=== PATIENT | female | born 1965 | race American Indian/Alaskan Native ===

== ENCOUNTER 2016-07-19 17:31 | Inpatient (IN) | payer OTHER ==
[2016-07-19] MEDS ORDERED: DUONEB 0.5 MG-3 MG/3 ML SOLN IH ONE (18:08)
[2016-07-19] MEDS ORDERED: PEPCID IV ONE (18:08)
[2016-07-19] MEDS ORDERED: ZOFRAN IV ONE (18:13)
[2016-07-19] MEDS ORDERED: SUBLIMAZE IV ONE ×2 (18:13→20:44)
[2016-07-19] MEDS ORDERED: NACL 0.9% 1000 ML 1,000 ML IV ONE ×2 (18:14→19:40)
[2016-07-19 18:51] LABS: Hematocrit 40.3 % (30.3-42.9); Hemoglobin 13.2 gm/dl (10.1-14.3); Mean Corpuscular HGB Conc 33 % (30-34); Mean Corpuscular Hemoglobin 28 pg (28-32); Mean Corpuscular Volume 85 fl (79-97); Platelet Count 333 K/mm3 (140-440); Red Blood Count 4.76 M/mm3 (3.65-5.03); Red Cell Distribution Width 13.8 % (13.2-15.2); White Blood Count 7.6 K/mm3 (4.5-11.0)
[2016-07-19 19:14] LABS: BUN/Creatinine Ratio 17.14; Blood Urea Nitrogen 12 mg/dL (7-17); Calcium 9.2 mg/dL (8.4-10.2); Carbon Dioxide 26 mmol/L (22-30); Glucose 294 mg/dL (65-100); Potassium 3.1 mmol/L (3.6-5.0); Sodium 140 mmol/L (137-145)
[2016-07-19 19:15] LABS: Anion Gap 19 mmol/L
--- NOTE | 2016-07-19 19:40 | Emergency Department Report ---
HPI - General Chief Complaint: Allergic Reaction Time Seen by Provider: 07/19/16 18:08 - HPI HPI: The patient is a 51-year-old female who presents for evaluation of swelling to the lips, tongue, and midface. The patient states that approximate one hour prior to arrival, she developed sudden onset of constant progressive swelling to the lower lip, tongue, and throat. She also has experienced moderate in severity, and tightness in quality, bilateral chest pain, constant since onset. She shares that she consumed provolone cheese and dull in the prior to onset of her symptoms although she has no known history of allergy to either. She does admit to history of angioedema secondary to lisinopril use. She admits to consuming the ARB Benicar this am. The patient denies dyspnea, neck stiffness, dysphagia, stridor, drooling, difficulty tolerating secretions, dysphonia, hoarseness of voice, abdominal pain. ED Past Medical Hx - Past Medical History Hx Hypertension: Yes Hx CVA: Yes (TIA) Hx Diabetes: Yes Hx Seizures: Yes Additional medical history: chronic leg pain diverticulitis uses CPAP at night CAD - Surgical History Additional Surgical History: - Social History Smoking Status: Never Smoker Substance Use Type: None - Medications Home Medications: Home Medications Medication Instructions Recorded Confirmed Last Taken Type oxyCODONE /ACETAMINOPHEN [Percocet 1 tab PO Q6HR PRN #20 tablet 08/19/15 Unknown Rx 5/325] ALPRAZolam [Xanax TAB] 0.25 mg PO TID PRN #30 tab 11/22/15 07/19/16 Unknown Rx Olmesartan/Hydrochlorothiazide 1 tab PO QDAY #30 tablet 11/22/15 07/19/16 Unknown Rx [Benicar HCT 20-12.5 mg] Simvastatin [Zocor TAB] 20 mg PO QHS #30 tablet 11/22/15 07/19/16 Unknown Rx amLODIPine [Norvasc] 10 mg PO DAILY #30 tablet 11/22/15 07/19/16 Unknown Rx Canagliflozin [Invokana] 300 mg PO DAILY 07/19/16 07/19/16 Unknown History Esomeprazole Magnesium [NexIUM] 40 mg PO DAILY 07/19/16 07/19/16 Unknown History Insulin Aspart Prot/Aspart 30 units SQ TID 07/19/16 07/19/16 Unknown History [NovoLOG Mix 70/30 VIAL] valACYclovir [Valtrex] 500 mg PO BID 07/19/16 07/19/16 Unknown History ED Review of Systems ROS: Stated complaint: ALLERGIC REACTION Other details as noted in HPI Physical Exam - Physical Exam Vital Signs: Vital Signs 07/19/16 07/19/16 07/19/16 18:05 19:20 19:36 Temperature 98.4 F Pulse Rate 104 H Respiratory 20 16 18 Rate Blood Pressure 159/101 O2 Sat by Pulse 100 99 Oximetry Physical Exam: General: well-nourished, well-developed, no acute distress Head: Normocephalic, Eyes: normal sclera ENT: Mucous membranes are pink and moist bilateral lower lip swelling present, mild swelling of the distal tongue present, no uvula, soft palate, or oropharyngeal swelling, no pooling of secretions in the posterior pharynx, no stridor or dysphonia Neck: trachea midline, neck supple, No neck stiffness, no cervical adenopathy Respiratory: mildly diminished breath sounds and wheezing present to bilateral lung pérez Cardio: S1 and S2 present, no murmurs, rubs, gallops, capillary refill is brisk Abdomen: Normoactive bowel sounds, soft abdomen, no rigidity, no guarding or rebound tenderness Musc: No pitting edema Skin: No rash Neuro: no facial drooping, normal speech Psych: Normal affect ED Course Vital Signs 07/19/16 07/19/16 07/19/16 18:05 19:20 19:36 Temperature 98.4 F Pulse Rate 104 H Respiratory 20 16 18 Rate Blood Pressure 159/101 O2 Sat by Pulse 100 99 Oximetry ED Medical Decision Making - Lab Data Result diagrams: 07/19/16 18:37 07/19/16 18:37 - Medical Decision Making The patient was seen and examined by myself. The patient received IV Solu- Medrol, IM epinephrine, an IV Benadryl via EMS, prior to arrival. The patient is placed on a revenue integrity analyst and continuous pulse ox. On initial evaluation, the patient was found to be in no distress. Evaluation orders were placed. The patient is given a DuoNeb breathing treatment, IV Pepcid, and IV fentanyl for her chest pain. Lab results revealed hyperglycemia of 290, and otherwise labs are grossly unremarkable. X-ray of the chest is grossly unremarkable. Critical care attestation.: If time is entered above; I have spent that time in minutes in the direct care of this critically ill patient, excluding procedure time. ED Disposition Clinical Impression: Acute chest pain Angioedema Qualifiers: Encounter type: initial encounter Qualified Code(s): T78.3XXA - Angioneurotic edema, initial encounter Anaphylaxis Qualifiers: Encounter type: initial encounter Qualified Code(s): T78.2XXA - Anaphylactic shock, unspecified, initial encounter Disposition: OP ADMITTED IP TO THIS HOSP Is pt being admited?: Yes Does the pt Need Aspirin: Yes Condition: Stable Instructions: Chest Pain (ED) Referrals: PRIMARY CARE, [Primary Care Provider] - 3-5 Days Time of Disposition: 19:04
[2016-07-19] MEDS ORDERED: SUBLIMAZE ONE (22:03)
--- NOTE | 2016-07-19 22:17 | Event Note ---
Date: 07/19/16 See H/p in reports Angioedema sec to ARB-Benicar. HTN T2DM Sleep Apnea Hypokalemia
[2016-07-19] MEDS ORDERED: D50W (25GM) IV PRN (22:22)
[2016-07-19] MEDS ORDERED: TYLENOL PO PRN (22:22)
[2016-07-19] MEDS ORDERED: DULCOLAX PR PRN (22:22)
[2016-07-19] MEDS ORDERED: MILK OF MAGNESIA PO PRN (22:22)
[2016-07-19] MEDS ORDERED: ZOFRAN IV PRN (22:22)
[2016-07-19] MEDS ORDERED: NON-FORMULARY (Insulin Aspart Prot/Aspart 30 UNITS) SQ SCH (22:30)
[2016-07-19] MEDS ORDERED: NACL 0.9% 1000 ML 1,000 ML IV SCH (23:00)
[2016-07-19] MEDS ORDERED: K-DUR PO ONE (23:00)
[2016-07-19] MEDS ORDERED: SODIUM CHLORIDE FLUSH SYRINGE 10 ML IV PRN (23:28)
[2016-07-20 00:19] LABS: Creatine Kinase MB 1.9 ng/mL (0.0-4.0)
[2016-07-20 00:20] LABS: Creatine Kinase 224 units/L (30-135)
--- NOTE | 2016-07-20 00:20 | History and Physical Report ---
CHIEF COMPLAINT: Swelling of the lips and the tongue. HISTORY OF PRESENT ILLNESS: A 51-year-old -[place] female comes in for swelling of the lips, tongue, and face. It started approximately 1 hour prior to arrival. Constant progressive swelling to the lower lip, tongue and throat. The patient also has experienced moderate severity and tightness in quality, bilateral chest pain. Constant since the onset. The patient had a similar reaction to lisinopril and was changed to Benicar recently and also she attributes to Benicar or Joon cheese. She was in the hospital for 7 days secondary to angioedema due to lisinopril use in the past. Denies any neck stiffness, dysphagia, stridor, drooling, difficulty tolerating secretions, dysphonia, hoarseness or voice, abdominal pain, etc. PAST MEDICAL HISTORY: Significant for hypertension, CVA, diabetes, seizures, chronic leg pain, diverticulitis, uses CPAP at nighttime. PAST SURGICAL HISTORY: . SOCIAL HISTORY: Does not smoke. No alcohol, no recreational drugs. CURRENT MEDICATIONS: Percocet 5/325 mg q.6.h. p.r.n., Xanax 0.25 mg t.i.d., olmesartan to 20/12.5 mg daily, simvastatin 20 mg p.o. daily, amlodipine 10 mg p.o. daily, Invokana 300 mg p.o. daily, Nexium 40 mg p.o. daily, insulin 70/30 30 units t.i.d., and valacyclovir 500 mg twice a day. FAMILY HISTORY: Significant for hypertension. REVIEW OF SYSTEMS: CONSTITUTIONAL: No fever, no chills. No weight loss. HEENT: Swelling of the lips and the tongue present. No airway compromise. The patient able breath easily. Able to swallow easily. Pupils are equal and reactive. NECK: No neck stiffness. No neck pain. RESPIRATORY: No shortness of breath, nausea, no cough productive of yellow sputum. CVS: Chest pain present bilaterally, moreso on the left side. GASTROINTESTINAL: No nausea, no vomiting, no diarrhea. GENITOURINARY: No dysuria, no flank pain. MUSCULOSKELETAL: No joint pains. CENTRAL NERVOUS SYSTEM: No syncope, no seizures. SKIN: No rashes. ENDOCRINE: No polyuria, polydipsia or polyphagia. No heat or cold intolerance. SKIN: No rashes. Swelling of the tongue and lips present. HEMATOLOGIC AND LYMPHATIC: No easy bruising, no lymphadenopathy. PSYCHIATRIC: No depression, no suicidal or homicidal tendencies. A 14-point review of systems is done, essentially negative. PHYSICAL EXAMINATION: GENERAL: Middle-aged female, cooperative during examination. VITAL SIGNS: Blood pressure 159/101, temperature 98.4, pulse is 104, respiratory rate is 20, sats are 100%. HEENT: Tongue and lips are swollen. Good air entry present. Tongue is swollen. Lips are swollen. No airway compromise. NECK: No neck stiffness. No lymphadenopathy, no thyromegaly. CHEST AND LUNGS: Clear to auscultation and percussion. Good air entry. CVS: S1, S2 heard. No gallop, no murmur, no rub. Apical impulse in left fifth intercostal space and midclavicular line. ABDOMEN: Soft and benign. No hepatosplenomegaly. No guarding, no rigidity. Hernial orifices are normal. EXTREMITIES: Good pedal pulses. No pedal edema. CENTRAL NERVOUS SYSTEM: Alert and oriented x 4, nonfocal exam. SKIN: Normal. LABORATORY DATA: White count is 7600, H and H is 13.2 and 40.3, platelet count is 333,000. EMERGENCY ROOM COURSE: The patient was given IV Solu-Medrol, epinephrine, IV Benadryl and was placed on continuous pulse ox. The patient improved to some extent but the patient needed further care because of persistent angioedema and tongue swelling. We did not want her to relapse and going to airway obstruction. Being admitted for 24-48 hours. ASSESSMENT AND PLAN: 1. Acute angioedema. The patient to be on IV Solu-Medrol and IV Pepcid and Benadryl q.6h. 2. Chest pain, rule out myocardial infarction, chest pain protocol. Lexiscan in the morning. 3. Hypertension. We will stop the Benicar. No more KIMBERLEY inhibitors and ARBs in the future. We will switch the patient on amlodipine. We will add Coreg 12.5 mg q.12h. If necessary add hydralazine 50 mg or 25 mg q.8h. 4. The patient not to continue any ARBs or KIMBERLEY inhibitors in the future. 5. Diabetes type 2. Continue with coverage. Also, the patient on insulin 70/30 three times a day and switch it to twice a day. 6. Chronic pain. The patient on oxycodone and Percocet 5/325 mg p.o. hours p.r.n. 7. Gastroesophageal reflux disease. Continue Nexium 40 mg p.o. daily. 8. Generalized anxiety disorder. Continue Xanax 0.25 mg t.i.d. 9. Sleep apnea. CPAP as necessary. 10. Hyperlipidemia. Continue simvastatin 20 mg p.o. at bedtime. 11. Deep venous thrombosis prophylaxis. Lovenox 40 mg subcutaneous daily. JOB# [id number] JU[facility]/NTS
[2016-07-20] MEDS: PERCOCET 5/325 PO PRN ×3 (00:26→18:00)
[2016-07-20] MEDS: VALTREX PO SCH ×3 (00:26→23:31)
[2016-07-20] MEDS: AMBIEN PO PRN ×2 (00:26→23:32)
[2016-07-20] MEDS: COREG PO SCH ×2 (00:27→09:15)
[2016-07-20] MEDS: PEPCID IV SCH ×3 (00:29→10:53)
[2016-07-20] MEDS: NOVOLOG SUB-Q SCH ×4 (06:44→23:34)
[2016-07-20 07:57] LABS: Basophils % (Auto) 0.4 % (0.0-1.8); Hematocrit 38.4 % (30.3-42.9); Hemoglobin 12.4 gm/dl (10.1-14.3); Mean Corpuscular HGB Conc 32 % (30-34); Mean Corpuscular Hemoglobin 27 pg (28-32); Mean Corpuscular Volume 83 fl (79-97); Platelet Count 305 K/mm3 (140-440); Red Blood Count 4.62 M/mm3 (3.65-5.03); Red Cell Distribution Width 14.2 % (13.2-15.2); White Blood Count 8.1 K/mm3 (4.5-11.0)
--- NOTE | 2016-07-20 08:12 | XRay Report ---
AP CHEST : 07/19/16 17:31:00 CLINICAL: Chest pain. COMPARISON:None FINDINGS: Normal heart and pulmonary vessels. The lungs are normally expanded and clear. The bones and soft tissues are normal. IMPRESSION: Normal chest.
[2016-07-20 08:17] LABS: Creatine Kinase MB 1.6 ng/mL (0.0-4.0)
[2016-07-20 08:18] LABS: Alanine Aminotransferase 15 units/L (7-56); Albumin 3.7 g/dL (3.9-5); Alkaline Phosphatase 90 units/L (35-129); Anion Gap 19 mmol/L; BUN/Creatinine Ratio 18.57; Bilirubin,Total 0.2 mg/dL (0.1-1.2); Blood Urea Nitrogen 13 mg/dL (7-17); Carbon Dioxide 21 mmol/L (22-30); Chloride 99.8 mmol/L (98-107); Glucose 271 mg/dL (65-100); Potassium 4.3 mmol/L (3.6-5.0); Sodium 135 mmol/L (137-145); Total Protein 7.5 g/dL (6.3-8.2)
[2016-07-20 08:19] LABS: Creatine Kinase 158 units/L (30-135)
--- NOTE | 2016-07-20 08:36 | Admit Criteria Form ---
Admission Criteria Documentation: CHEST PAIN Clinical Indications for Admission to Inpatient Care (Place 'X' for any and all applicable criteria): Admission is indicated for chest pain and ANY ONE of the following(1)(2)(3)(4)(5 ): [ ]I. Angina with acute coronary syndrome (Also use Myocardial Infarction or Angina guideline) [ ]II. Hemodynamic instability [ X]III. Angina needing acute intervention as indicated by ALL of the following (11)(12): [X ]a) Unstable angina is present as indicated by angina that is ANY ONE of the following: [X ]i) New onset [ ]ii) Nocturnal [ ]iii) Prolonged at rest [ ]iv) Progressive [ X]b) Angina warrants acute intervention as indicated by ANY ONE of the following: [ ]i) Recurrent angina (e.g, not responding as previously to treatment) [ ]ii) Angina at rest or with low-level activities despite initial medical therapy [ ]iii) New or presumably new ST-segment depression on ECG [ ]iv) Signs or symptoms of heart failure (eg, dyspnea, pulmonary edema) [ ]v) New or worsening mitral regurgitation [ ]vi) Hemodynamic instability [ ]vii) Dangerous arrhythmia (eg, sustained ventricular tachycardia) [ ]viii) History of percutaneous coronary intervention within 6 months [ ]ix) History of coronary artery bypass graft surgery [ ]x) JARAD risk score of 2 or greater[A] [X ]xi) History of Diabetes(14) [ ]xii) High-risk cardiac ischemia findings on noninvasive testing (e.g, echocardiogram, treadmill testing, nuclear scan) [ ]xiii) Chronic renal insufficiency (ie, estimated GFR less than 60 mL/min/1.732m) [ ]xiv) Left ventricular ejection fraction less than 40% [ ]IV. Evidence of AL (eg, cardiac biomarkers positive, ST-segment elevation on ECG) also use Myocardial Infarction Criteria Form. [ ]V. Pulmonary edema [ ]. Respiratory distress [ ]VII. Chest pain indicative of serious diagnosis other than coronary artery disease (eg, aortic dissection) [ ]VIII. Contraindications and/or Inappropriate clinical situations for Observational Care in patients with Chest Pain, when ANY ONE of the following is required: [ ]a) Patient with risk factor for pulmonary embolism, acute coronary syndrome and myocardial infarction (18) [ ]b) Patient with Pulmonary embolism require an average LOS of 4.3 days, therefore emergency department observation management is inappropriate 18,23 [ ]c) Painful condition/s in the elderly, have the highest rate of recidivism after emergency department observation management (10.8%) 20,21,22 [ ]d) Elevated cardiac biomarker requires intensive and exhaustive care (19) [ ]IX. General contraindications and/or Inappropriate clinical situations for Observational Care in patients with Chest Pain, when ANY ONE of the following is required: [ ]a) Prediction of prolongation of LOS based on ANY ONE of the following may be considered as a contraindication for observational care 2, 3, 4, 5, 6, 7, 8, 9, 10, 11 [ ]i) Age > 65 yrs. [ ]ii) Patient arriving by ambulance [ ]iii) Patient with high acuity [ ]iv) Patient requiring vital sign monitoring [ ]v) Patient on IV medication [ ]b) Systolic blood pressures 180mmHg 3,12 [ ]c) Patient with altered mental status including delirium and other alteration of consciousness, (3) [ ]d) Patient whose discharge disposition will be to a nursing home home or rehabilitation home should not be managed in Emergency Department Observation Unit. CMS rule requires 3 days hospital stay before such placement. 3,13 [ ]e) Patient with failure to thrive due to broad array of etiologies 3,16,17 [ ]f) Inability to ambulate 3,14 Extended stay beyond goal length of stay may be needed for (1)(28): [ ]a) Specific condition diagnosed after evaluation (eg, pulmonary embolism, aortic dissection) [ ]b) Unstable angina [ ]c) Continued suspicion of acute coronary syndrome with inability to complete needed cardiac evaluation (eg, patient clinically unable to undergo stress testing) [ ]d) Myocardial infarction (Contents from ANGINA and CHEST PAIN clinical indications for admission to inpatient care have been integrated in this form) The original [employer] content created by [employer] has been revised. The portions of the content which have been revised are identified through the use of italic text or in bold, and [facility] has neither reviewed nor approved the modified material. All other unmodified content is copyright [employer]. Please see references footnoted in the original [email or web address] edition 2016 Admission Criteria Met: Yes
[2016-07-20] MEDS: NORVASC PO SCH (09:14)
[2016-07-20] MEDS ORDERED: NON-FORMULARY (Canagliflozin [Invokana] 300 MG) PO SCH (10:00)
[2016-07-20] MEDS ORDERED: PROTONIX PO SCH (10:00)
--- NOTE | 2016-07-20 19:09 | Progress Note ---
History Interval history: lip, tongue swelling significantly reduced; complaining of left leg pain Hospitalist Physical - Constitutional Vitals: Temp Pulse Resp BP Pulse Ox 98.5 F 72 18 146/72 97 07/20/16 16:27 07/20/16 16:27 07/20/16 16:27 07/20/16 16:27 07/20/16 16:27 Results - Labs CBC & Chem 7: 07/20/16 07:44 07/20/16 07:44 Labs: Laboratory Last Values WBC 8.1 K/mm3 (4.5-11.0) 07/20/16 07:44 RBC 4.62 M/mm3 (3.65-5.03) 07/20/16 07:44 Hgb 12.4 gm/dl (10.1-14.3) 07/20/16 07:44 Hct 38.4 % (30.3-42.9) 07/20/16 07:44 MCV 83 fl (79-97) 07/20/16 07:44 MCH 27 pg (28-32) L 07/20/16 07:44 MCHC 32 % (30-34) 07/20/16 07:44 RDW 14.2 % (13.2-15.2) 07/20/16 07:44 Plt Count 305 K/mm3 (140-440) 07/20/16 07:44 Lymph % (Auto) 9.8 % (13.4-35.0) L 07/20/16 07:44 [place] % (Auto) 2.5 % (0.0-7.3) 07/20/16 07:44 Eos % (Auto) 0.0 % (0.0-4.3) 07/20/16 07:44 Baso % (Auto) 0.4 % (0.0-1.8) 07/20/16 07:44 Lymph # 0.8 K/mm3 (1.2-5.4) L 07/20/16 07:44 [place] # 0.2 K/mm3 (0.0-0.8) 07/20/16 07:44 Eos # 0.0 K/mm3 (0.0-0.4) 07/20/16 07:44 Baso # 0.0 K/mm3 (0.0-0.1) 07/20/16 07:44 Seg Neutrophils % 87.3 % (40.0-70.0) H 07/20/16 07:44 Seg Neutrophils # 7.1 K/mm3 (1.8-7.7) 07/20/16 07:44 Sodium 135 mmol/L (137-145) L 07/20/16 07:44 Potassium 4.3 mmol/L (3.6-5.0) D 07/20/16 07:44 Chloride 99.8 mmol/L (98-107) 07/20/16 07:44 Carbon Dioxide 21 mmol/L (22-30) L 07/20/16 07:44 Anion Gap 19 mmol/L 07/20/16 07:44 BUN 13 mg/dL (7-17) 07/20/16 07:44 Creatinine 0.7 mg/dL (0.7-1.2) 07/20/16 07:44 Estimated GFR > 60 ml/min 07/20/16 07:44 BUN/Creatinine Ratio 18.57 % 07/20/16 07:44 Glucose 271 mg/dL (65-100) H 07/20/16 07:44 POC Glucose 302 (70-105) H 07/20/16 16:39 Hemoglobin A1c 10.2 % (4-6) H 07/19/16 18:37 Calcium 9.0 mg/dL (8.4-10.2) 07/20/16 07:44 Total Bilirubin 0.2 mg/dL (0.1-1.2) 07/20/16 07:44 AST 15 units/L (5-40) 07/20/16 07:44 ALT 15 units/L (7-56) 07/20/16 07:44 Alkaline Phosphatase 90 units/L (35-129) 07/20/16 07:44 Total Creatine Kinase 158 units/L (30-135) H 07/20/16 07:44 CK-MB (CK-2) 1.6 ng/mL (0.0-4.0) 07/20/16 07:44 CK-MB (CK-2) Rel Index 1.0 (0-4) 07/20/16 07:44 Troponin T < 0.010 ng/mL (0.00-0.029) 07/20/16 07:44 NT-Pro-B Natriuret Pep 96.40 pg/mL (0-900) 07/19/16 18:37 Total Protein 7.5 g/dL (6.3-8.2) 07/20/16 07:44 Albumin 3.7 g/dL (3.9-5) L 07/20/16 07:44 Albumin/Globulin Ratio 1.0 % 07/20/16 07:44
[2016-07-20] MEDS ORDERED: DILAUDID IV ONE (21:57)
[2016-07-20] MEDS ORDERED: ZOCOR PO SCH (22:00)
[2016-07-20] MEDS: XANAX PO PRN (23:32)
[2016-07-21] MEDS: COREG PO SCH ×2 (00:19→12:46)
[2016-07-21] MEDS: PEPCID IV SCH (00:19)
[2016-07-21] MEDS: PERCOCET 5/325 PO PRN ×2 (01:20→14:57)
[2016-07-21] MEDS: NOVOLOG SUB-Q SCH ×2 (07:30→13:08)
[2016-07-21] MEDS ORDERED: LEXISCAN IV ONE (09:04)
[2016-07-21] MEDS ORDERED: PEPCID PO SCH (12:00)
[2016-07-21] MEDS: NORVASC PO SCH (12:44)
[2016-07-21] MEDS: VALTREX PO SCH (12:45)
[2016-07-21] MEDS: XANAX PO PRN (14:57)
[2016-07-21] MEDS ORDERED: DILAUDID IV ONE (16:02)
--- NOTE | 2016-07-21 16:08 | Discharge Summary ---
Providers - Providers Date of Admission: 07/20/16 17:40 Date of discharge: 07/21/16 Attending physician: HECTOR ATWOOD Primary care physician: STRATIGRAPHY TEACHER Hospitalization Condition: Stable Disposition: DISCHARGED TO HOME OR SELFCARE Time spent for discharge: 35 min Exam - Constitutional Vitals: Temp Pulse Resp BP Pulse Ox 98 F 76 16 132/88 98 07/21/16 07:15 07/21/16 12:46 07/21/16 07:15 07/21/16 09:42 07/21/16 07:15 Plan Activity: advance as tolerated Diet: low cholesterol, low salt Follow up with: PRIMARY CARE, [Primary Care Provider] - 3-5 Days Prescriptions: Simvastatin [Zocor TAB] 20 mg PO QHS #30 tablet Carvedilol [Coreg] 12.5 mg PO BID #60 tablet amLODIPine [Norvasc] 10 mg PO DAILY #30 tablet Insulin NPH/Regular [NovoLIN 70/30] 30 unit SUB-Q BIDDIAB #1 units oxyCODONE /ACETAMINOPHEN [Percocet 5/325 mg] 1 tab PO Q6H PRN #20 tablet PRN Reason: Pain
[2016-07-21 16:28] VITALS: BP 132/72
--- NOTE | 2016-07-22 01:25 | Treadmill Report ---
PROCEDURE: Single-isotope dual study myocardial perfusion scan. REFERRING PHYSICIAN: Nga Woodard MD DESCRIPTION OF PROCEDURE: The patient received 10 mCi of technetium 99m Myoview intravenously under resting condition. Resting myocardial perfusion scan was done. Subsequently, the patient underwent Lexiscan stress test as per the protocol. During Lexiscan stress, the patient received 28 mCi of technetium 99m Myoview intravenously. After 30-60 minutes, post stress images were done. Computerized reconstruction images were performed. The post-stress images revealed uniform distribution of the radiopharmaceutical in the left ventricular myocardium. Cinematic display of the gated study did not reveal any wall motion abnormality. The left ventricular ejection fraction was normal and was calculated to be 75%. The resting images were also normal. CONCLUSION: 1. No perfusion abnormality of the left ventricular myocardium was demonstrated in the resting as well as stress images obtained after the patient underwent Lexiscan stress test. 2. No wall motion abnormality. 3. Normal left ventricular systolic function with LVEF around 75%. JOB# [id number] [facility]
== END 2016-07-21 19:03 | disposition home or self-care (01) | DRG 916 ==
LOC: ED 17:31 → 3A 20:55 → OBSVTOIN 07-20 17:40
PROVIDERS: ADMIT Hospitalist; ATTEND Internal Medicine
PROC: 4A02XM4 Measurement of Cardiac Total Activity, External Approach (ICD-10-PCS; principal; 2016-07-19)
DX: T78.3XXA Angioneurotic edema, initial encounter (principal); I10 Essential (primary) hypertension; E11.9 Type 2 diabetes mellitus without complications; G89.29 Other chronic pain; R07.9 Chest pain, unspecified; K21.9 Gastro-esophageal reflux disease without esophagitis; F41.1 Generalized anxiety disorder; G47.30 Sleep apnea, unspecified; E78.5 Hyperlipidemia, unspecified; Z86.73 Personal history of transient ischemic attack (TIA), and cerebral infarction without residual deficits; Z88.6 Allergy status to analgesic agent; Z88.8 Allergy status to other drugs, medicaments and biological substances; Z82.49 Family history of ischemic heart disease and other diseases of the circulatory system
CPT/HCPCS: 36415; 71010; 78452; 80048; 80053; 82550; 82553; 82962; 83036; 83880; 84484; 85025; 85027; 93005; 93010; 93017; 94640; 96374; 96375; 96376; A9502; G0378; J1170; J1815; J2405; J2785; J2930; J3010; J7030

== ENCOUNTER 2017-05-13 12:15 | Emergency (ER) | payer MEDICAID ==
[2017-05-13 12:43] LABS: Basophils % (Auto) 0.6 % (0.0-1.8); Eosinophils % (Auto) 2.2 % (0.0-4.3); Hematocrit 40.6 % (30.3-42.9); Hemoglobin 13.3 gm/dl (10.1-14.3); Mean Corpuscular HGB Conc 33 % (30-34); Mean Corpuscular Hemoglobin 29 pg (28-32); Mean Corpuscular Volume 88 fl (79-97); Platelet Count 277 K/mm3 (140-440); Red Cell Distribution Width 13.7 % (13.2-15.2)
[2017-05-13 13:18] LABS: Anion Gap 18 mmol/L; BUN/Creatinine Ratio 15; Blood Urea Nitrogen 12 mg/dL (7-17); Calcium 9.3 mg/dL (8.4-10.2); Carbon Dioxide 24 mmol/L (22-30); Chloride 104.7 mmol/L (98-107); Glucose 295 mg/dL (65-100); Potassium 3.6 mmol/L (3.6-5.0); Sodium 143 mmol/L (137-145)
--- NOTE | 2017-05-13 13:31 | XRay Report ---
CHEST TWO VIEWS: 05/13/17 12:15:00 CLINICAL: Chest pain. COMPARISON: 07/19/16 FINDINGS: Normal heart and pulmonary vasculature.Aortic tortuosity. The lungs are normally expanded and clear.The bones and soft tissues are unremarkable. IMPRESSION: No acute cardiopulmonary process.
[2017-05-13] MEDS ORDERED: DUONEB *Not for PRN Use IH ONE (14:24)
--- NOTE | 2017-05-13 14:26 | Emergency Department Report ---
Chief Complaint: Allergic Reaction Stated Complaint: POSSIBLE ALLERGIC REACTION, ITCHING ALL OVER - HPI History of Present Illness: 51-year-old female past medical history hypertension, diabetes, history of angioedema/allergic reactions presents with complaint of 2 hours of shortness of breath facial swelling and chest pain. Patient is awake and alert but appears distressed and emotionally labile. States that she feels that she is having a hard time breathing. As per her this episode started approximately 2 hours ago. Patient is awake alert and oriented. - ROS Review of Systems: History of - Exam Vital Signs: Vital Signs 05/13/17 12:18 Temperature 99.8 F H Pulse Rate 98 H Respiratory 20 Rate Blood Pressure 152/108 O2 Sat by Pulse 100 Oximetry Physical Exam: Heart S1-S2, lungs clear. Patient awake alert and oriented 3. No visible tongue and/or lip swelling, oropharynx patent on inspection MSE screening note: Focused history and physical exam performed. Due to findings the following was ordered: Screening Assessment/Plan/Differential Dx: Shortness of breath, possible allergic reaction 1- This initial assessment/diagnostic orders/clinical plan/ treatment(s) is/are subject to change based on pt's health status, clinical progression and re- assessment by fellow clinical providers in the ED. Further treatment and workup at subsequent clinical provers discretion. Patient/guardians urged not to elope from ED as their condition may be serious if not clinically assessed and managed. 2-loader demolder Lisa informed of scenario 3-duoneb tx 4-repeat ekg, trop beg x1, cxr WNL 5- VS stable at bedside as of 2:25PM, BP 153/109, o2sat on RA 100%, HR 90, RR20 ED Medical Decision Making - Lab Data Result diagrams: 05/13/17 12:28 05/13/17 12:28 ED Disposition for MSE Condition: Stable Referrals: PRIMARY CARE, [Primary Care Provider] - 3-5 Days
[2017-05-13] MEDS ORDERED: BENADRYL IV ONE ×2 (14:31→17:05)
[2017-05-13] MEDS ORDERED: PEPCID IV ONE (14:31)
--- NOTE | 2017-05-13 17:11 | Emergency Department Report ---
HPI - General Chief Complaint: Allergic Reaction Time Seen by Provider: 05/13/17 16:54 - HPI HPI: This is a 51-year-old -[place] female presents to the emergency department from home with a possible allergic reaction. She says that after eating something this morning she had some swelling of the face and neck and also had a burning sensation in the chest. She did not take anything for her symptoms prior presentation but received some Benadryl, Pepcid, steroids and a breathing treatment through triage and now says that she is feeling much improved. She says that she does have a history of allergic reactions to multiple medications as well as to random foods. However she is unsure what food as she says that sometimes she will not have a reaction to something and then the next time she consumes it she will have a reaction. She has seen an punch press feeder in the past who was unable to narrow down her allergies. She denies any drooling or trismus, fever, nausea, vomiting or fever. ED Past Medical Hx - Past Medical History Hx Hypertension: Yes Hx CVA: Yes (TIA) Hx Congestive Heart Failure: No Hx Diabetes: Yes Hx Sickle Cell Disease: No Hx Seizures: Yes Hx Asthma: No Hx COPD: No Hx HIV: No Additional medical history: chronic leg pain diverticulitis uses CPAP at night CAD - Surgical History Additional Surgical History: - Social History Smoking Status: Never Smoker Substance Use Type: None - Medications Home Medications: Home Medications Medication Instructions Recorded Confirmed Last Taken Type ALPRAZolam [Xanax TAB] 0.25 mg PO TID PRN #30 tab 11/22/15 05/13/17 Unknown Rx Insulin Aspart Prot/Aspart(Nf) 30 units SQ TID 07/19/16 05/13/17 05/13/17 History [NovoLOG Mix 70/30 VIAL] Insulin NPH/Regular [NovoLIN 70/30] 30 unit SUB-Q BIDDIAB #1 units 07/21/1605/1905/13/17 Rx amLODIPine [Norvasc] 10 mg PO DAILY #30 tablet 07/21/16 05/13/17 05/13/17 Rx oxyCODONE /ACETAMINOPHEN [Percocet 1 tab PO Q6H PRN #20 tablet 07/21/1605/13/17 Rx 5/325 mg] Clopidogrel Bisulfate [Plavix] 75 mg PO DAILY 05/13/17 05/13/17 05/13/17 History Famotidine [Pepcid] 20 mg PO BID #10 tablet 05/13/17 Unknown Rx ED Review of Systems ROS: Stated complaint: POSSIBLE ALLERGIC REACTION, ITCHING ALL OVER Other details as noted in HPI Comment: All other systems reviewed and negative Constitutional: denies: chills, fever Eyes: denies: eye pain, eye discharge, vision change ENT: denies: ear pain, throat pain Respiratory: denies: cough, wheezing Cardiovascular: chest pain. denies: palpitations Gastrointestinal: denies: abdominal pain, nausea, diarrhea Genitourinary: denies: urgency, dysuria, discharge Musculoskeletal: denies: back pain, joint swelling, arthralgia Skin: denies: lesions, change in color Neurological: denies: headache, weakness Physical Exam - Physical Exam Vital Signs: Vital Signs 05/13/17 05/13/17 05/13/17 12:18 14:29 14:35 Temperature 99.8 F H Pulse Rate 98 H Pulse Rate [ 90 94 H Bilateral Upper Lobe] Respiratory 20 Rate Respiratory 18 18 Rate [Bilateral Upper Lobe] Blood Pressure 152/108 Blood Pressure [Left] O2 Sat by Pulse 100 Oximetry 05/13/17 17:05 Temperature 98.4 F Pulse Rate 87 Pulse Rate [ Bilateral Upper Lobe] Respiratory 18 Rate Respiratory Rate [Bilateral Upper Lobe] Blood Pressure Blood Pressure 146/100 [Left] O2 Sat by Pulse 98 Oximetry Physical Exam: GENERAL: The patient is well-developed well-nourished. HENT: Normocephalic. Atraumatic. Patient has moist mucous membranes. Oropharynx is clear. Malampati of 3. No drooling or trismus. EYES: Extraocular motions are intact. Pupils equal reactive to light bilaterally. NECK: Supple. Trachea is midline. There is some nonpitting swelling to the base of the anterior and bilateral neck and towards the shoulders. CHEST/LUNGS: Clear to auscultation. There is no respiratory distress noted. HEART/CARDIOVASCULAR: Regular. There is no tachycardia. There is no gallop rub or murmur. ABDOMEN: Abdomen is soft, nontender. Patient has normal bowel sounds. There is no abdominal distention. SKIN: Skin is warm and dry. NEURO: The patient is awake, alert, and oriented. The patient is cooperative. The patient has no focal neurologic deficits. The patient has normal speech. MUSCULOSKELETAL: There is no tenderness or deformity. There is no limitation range of motion. There is no evidence of acute injury. ED Course Vital Signs 05/13/17 05/13/17 05/13/17 12:18 14:29 14:35 Temperature 99.8 F H Pulse Rate 98 H Pulse Rate [ 90 94 H Bilateral Upper Lobe] Respiratory 20 Rate Respiratory 18 18 Rate [Bilateral Upper Lobe] Blood Pressure 152/108 Blood Pressure [Left] O2 Sat by Pulse 100 Oximetry 05/13/17 17:05 Temperature 98.4 F Pulse Rate 87 Pulse Rate [ Bilateral Upper Lobe] Respiratory 18 Rate Respiratory Rate [Bilateral Upper Lobe] Blood Pressure Blood Pressure 146/100 [Left] O2 Sat by Pulse 98 Oximetry ED Medical Decision Making - Lab Data Result diagrams: 05/13/17 12:28 05/13/17 12:28 - EKG Data -: EKG Interpreted by Me EKG shows normal: sinus rhythm, axis, intervals, QRS complexes, ST-T waves Rate: normal - EKG Data When compared to previous EKG there are: previous EKG unavailable Interpretation: normal EKG - Radiology Data Radiology results: image reviewed interpreted by me: Chest x-ray does not show any acute process. There are no pleural effusions, obvious pneumonia and there is no pneumothorax. - Medical Decision Making 51-year-old female presents after what appears to be an allergic reaction that included some chest burning. Because of the chest burning, the patient had a chest pain workup through the emergency department. Labs of an unremarkable including negative troponins 2. EKG does not show any signs of ST elevation [place] , ischemia or dysrhythmia. Chest x-ray does not show any acute process. The patient also had some swelling of the face and neck that she says was much worse prior to presentation and improved after getting some medication to triage. Vital signs stable throughout her ED course. She was reevaluated multiple times for multiple hours and says she is feeling much better. There is almost no appreciable swelling and she has no chest burning sensation. Despite the negative workup, the patient has a low heart score and a low JARAD score. She appears safe for discharge home at this time. She has Benadryl at home to use. She is diabetic and therefore I'll avoid any courses of steroids. She will get some Pepcid. She has been encouraged to follow up with her PCP and punch press feeder and return to the emergency Department with any worsening of her symptoms or any acute distress. Discharge instructions given in the emergency department and all questions have been answered. - Differential Diagnosis allergic reaction, angioedema, GERD, [place] Critical Care Time: No Critical care attestation.: If time is entered above; I have spent that time in minutes in the direct care of this critically ill patient, excluding procedure time. ED Disposition Clinical Impression: Burning chest pain, Facial swelling Allergic reaction Qualifiers: Encounter type: initial encounter Qualified Code(s): T78.40XA - Allergy, unspecified, initial encounter Disposition: TO HOME OR SELFCARE Is pt being admited?: No Condition: Stable Instructions: Chest Pain (ED), Angioedema (ED) Additional Instructions: Please follow-up with your primary care physician and punch press feeder. Return to the emergency Department with any worsening of her symptoms, involvement of the tongue or throat, inability to swallow, respiratory distress, or any acute distress. I have prescribed you a few days of Pepcid to help with your allergic reaction. You can also use Benadryl as needed. Prescriptions: Famotidine [Pepcid] 20 mg PO BID #10 tablet Referrals: PRIMARY CARE, [Primary Care Provider] - 3-5 Days Time of Disposition: 18:52
[2017-05-13 19:07] VITALS: BP 140/95
== END 2017-05-13 19:15 | disposition home or self-care (01) ==
LOC: ED 12:15
DX: R07.9 Chest pain, unspecified (principal); T78.40XA Allergy, unspecified, initial encounter; Z86.73 Personal history of transient ischemic attack (TIA), and cerebral infarction without residual deficits; I10 Essential (primary) hypertension; E11.9 Type 2 diabetes mellitus without complications; Z79.4 Long term (current) use of insulin; Z88.8 Allergy status to other drugs, medicaments and biological substances
CPT/HCPCS: 36415; 71020; 80048; 84484; 85025; 93005; 93010; 94640; 96372; 96374; 96375; 96376; 99284; J1200; J2930

== ENCOUNTER 2017-09-18 07:00 | Inpatient (IN) | payer MEDICAID ==
[2017-09-18 07:30] LABS: Basophils % (Auto) 0.8 % (0.0-1.8); Eosinophils # (Auto) 0.2 K/mm3 (0.0-0.4); Eosinophils % (Auto) 3.6 % (0.0-4.3); Hematocrit 41.7 % (30.3-42.9); Hemoglobin 13.5 gm/dl (10.1-14.3); Lymphocytes # (Auto) 1.9 K/mm3 (1.2-5.4); Lymphocytes % (Auto) 31.5 % (13.4-35.0); Mean Corpuscular HGB Conc 33 % (30-34); Mean Corpuscular Hemoglobin 28 pg (28-32); Mean Corpuscular Volume 85 fl (79-97); Monocytes # (Auto) 0.6 K/mm3 (0.0-0.8); Monocytes % (Auto) 10.7 % (0.0-7.3); Platelet Count 330 K/mm3 (140-440); Red Blood Count 4.92 M/mm3 (3.65-5.03)
--- NOTE | 2017-09-18 07:34 | Cat Scan Report ---
FINAL REPORT EXAM: CT HEAD/BRAIN WO CON HISTORY: neuro deficits < 6hrs or sx present upon awakening TECHNIQUE: Routine axial imaging was obtained of the brain without IV contrast. Comparison is made to the study of 11/18/2015. FINDINGS: There is no evidence of acute stroke or hemorrhage. The ventricular system is appropriate in size and is symmetric. The basal cisterns appear normal. The visualized sinuses are clear. The mastoid air cells are well pneumatized. IMPRESSION: No acute intracranial process.
--- NOTE | 2017-09-18 07:37 | Emergency Department Report ---
HPI - General Chief Complaint: Neuro Symptoms/Deficit Time Seen by Provider: 09/18/17 07:25 - HPI HPI: 52-year-old female presents to the emergency department with a complaint of some left arm numbness and burning sensation, as well as some left facial numbness and left arm weakness. The patient does have a history of a CVA from about 2 years ago that left her with some residual left-sided weakness. Allegedly she was feeling fine when she went to bed last night. However her says "she did not look good." She woke up at 3:30 AM and was complaining of the left arm burning as well as some decreased sensation but they waited until about 6:30 to come in and be seen. She also has a history of hypertension, hyperlipidemia, diabetes. She did not take anything for her symptoms prior to presentation. She denies any tobacco or illicit drug use or abuse. ED Past Medical Hx - Past Medical History Previous Medical History?: Yes Hx Hypertension: Yes Hx CVA: Yes (TIA) Hx Congestive Heart Failure: No Hx Diabetes: Yes Hx Sickle Cell Disease: No Hx Seizures: Yes Hx Asthma: No Hx COPD: No Hx HIV: No Additional medical history: chronic leg pain diverticulitis uses CPAP at night CAD - Surgical History Past Surgical History?: Yes Additional Surgical History: - Social History Smoking Status: Never Smoker - Medications Home Medications: Home Medications Medication Instructions Recorded Confirmed Last Taken Type ALPRAZolam [Xanax TAB] 0.25 mg PO TID PRN #30 tab 11/22/15 09/18/17 09/17/17 Rx Insulin Aspart Prot/Aspart(Nf) 30 units SQ TID 07/19/16 09/18/17 09/17/17 History [NovoLOG Mix 70/30 VIAL] amLODIPine [Norvasc] 10 mg PO DAILY #30 tablet 07/21/16 09/18/17 09/17/17 Rx Clopidogrel Bisulfate [Plavix] 75 mg PO DAILY 05/13/17 09/18/17 09/17/17 History AtorvaSTATin [Lipitor] 40 mg PO DAILY 09/18/17 09/18/17 09/17/17 History Ipratropium/Albuterol Sulfate 1 spray IH QID 09/18/17 09/18/17 Unknown History [Combivent Respimat] Oxycodone HCl/Acetaminophen 1 each PO TID PRN 09/18/17 09/18/17 Unknown History [Percocet 10/325 mg] Spironolactone [Aldactone] 100 mg PO QDAY 09/18/17 09/18/17 09/17/17 History Zolpidem [Ambien] 10 mg PO QHS 09/18/17 09/18/17 09/17/17 History ED Review of Systems ROS: Stated complaint: POSSIBLE STROKE Other details as noted in HPI Comment: All other systems reviewed and negative Constitutional: denies: chills, fever Eyes: denies: eye pain, eye discharge, vision change ENT: denies: ear pain, throat pain Respiratory: denies: cough, shortness of breath, wheezing Cardiovascular: denies: chest pain, palpitations Gastrointestinal: denies: abdominal pain, nausea, diarrhea Genitourinary: denies: urgency, dysuria, discharge Musculoskeletal: denies: back pain, joint swelling, arthralgia Skin: denies: rash, lesions Neurological: weakness, numbness. denies: headache Physical Exam - Physical Exam Physical Exam: GENERAL: The patient is well-developed well-nourished. HENT: Normocephalic. Atraumatic. Patient has moist mucous membranes. EYES: Extraocular motions are intact. Pupils equal reactive to light bilaterally. No nystagmus. NECK: Supple. Trachea is midline. CHEST/LUNGS: Clear to auscultation. There is no respiratory distress noted. HEART/CARDIOVASCULAR: Regular. There is no tachycardia. There is no murmur. ABDOMEN: Abdomen is soft, nontender. Patient has normal bowel sounds. There is no abdominal distention. SKIN: Skin is warm and dry. NEURO: The patient is awake, alert, and oriented. The patient is cooperative. There is some mild left-sided nasolabial fold paresis. There is some mild left upper extremity drift but does not hit the bed. Subjective decreased sensation to the left side of the face, left arm and left leg. The patient has normal speech. MUSCULOSKELETAL: There is no tenderness or deformity. There is no limitation range of motion. There is no evidence of acute injury. ED Course - Reevaluation(s) Reevaluation #1: 09/18/17 07:37 NIH Stroke Scale/Score (NIHSS) from [email or web address] on 09/18/2017 All calculations should be rechecked by clinician prior to use RESULT SUMMARY: 3 points NIH Stroke Scale INPUTS: 1A: Level of consciousness > 0 = Alert; keenly responsive 1B: Ask month and age > 0 = Both questions right 1C: 'Blink eyes' & 'squeeze hands' > 0 = Performs both tasks 2: Horizontal extraocular movements > 0 = Normal 3: Visual pérez > 0 = No visual loss 4: Facial palsy > 1 = Minor paralysis (flat nasolabial fold, smile asymetry) 5A: Left arm motor drift > 1 = Drift, but doesn't hit bed 5B: Right arm motor drift > 0 = No drift for 10 seconds 6A: Left leg motor drift > 0 = No drift for 5 seconds 6B: Right leg motor drift > 0 = No drift for 5 seconds 7: Limb Ataxia > 0 = No ataxia 8: Sensation > 1 = Mild-moderate loss: less sharp/more dull 9: Language/aphasia > 0 = Normal; no aphasia 10: Dysarthria > 0 = Normal 11: Extinction/inattention > 0 = No abnormality - Consultations Consultation #1: Shortly after the patient had her CT scan of the head, I spoke with the telemedicine neurologist, Dr. Ghosh, who agreed that the patient does not appear to be a candidate to receive TPA and he recommends admission to the hospital for further evaluation including MRI brain. 09/18/17 12:58 ED Medical Decision Making - Lab Data Result diagrams: 09/18/17 07:24 09/18/17 07:24 - EKG Data -: EKG Interpreted by Me EKG shows normal: sinus rhythm, axis, intervals, QRS complexes, ST-T waves Rate: bradycardia (57 bpm) - EKG Data When compared to previous EKG there are: previous EKG unavailable Interpretation: normal EKG (with mild bradycardia at 57 bpm) - Radiology Data Radiology results: report reviewed EXAM: CT HEAD/BRAIN WO CON HISTORY: neuro deficits lt; 6hrs or sx present upon awakening TECHNIQUE: Routine axial imaging was obtained of the brain without IV contrast. Comparison is made to the study of 11/18/2015. FINDINGS: There is no evidence of acute stroke or hemorrhage. The ventricular system is appropriate in size and is symmetric. The basal cisterns appear normal. The visualized sinuses are clear. The mastoid air cells are well pneumatized. IMPRESSION: No acute intracranial process. Transcribed By: IMAN Dictated By: JUNE PHILLIPS MD Electronically Authenticated By: JUNE PHILLIPS MD Signed Date/Time: 09/18/17 6729 - Medical Decision Making Patient presented as a code stroke. She was not a TPA candidate as there was no obvious last known well time and she had previous administration of TPA. CT head did not show any bleed, shift, mass or any acute process. Labs did not show any metabolic reason for her symptoms. Telemedicine neurology was consulted. The patient will be admitted to the hospital for further evaluation and treatment and was accepted for admission by the hospitalist service. - Differential Diagnosis CVA, TIA, hypoglycemia, neuropathy Critical Care Time: No Critical care attestation.: If time is entered above; I have spent that time in minutes in the direct care of this critically ill patient, excluding procedure time. ED Disposition Clinical Impression: Facial asymmetry, Left sided numbness CVA (cerebral vascular accident) Qualifiers: CVA mechanism: thrombosis Precerebral and cerebral artery: unspecified precerebral artery Qualified Code(s): I63.00 - Cerebral infarction due to thrombosis of unspecified precerebral artery Disposition: DC-09 OP ADMIT IP TO THIS HOSP Is pt being admited?: Yes Condition: Stable Time of Disposition: 13:01
[2017-09-18 07:42] LABS: BUN/Creatinine Ratio 16; Blood Urea Nitrogen 13 mg/dL (7-17); Hemolysis Index 9
[2017-09-18] MEDS ORDERED: BABY ASPIRIN PO ONE (07:48)
[2017-09-18 08:25] LABS: INR 0.91 (0.87-1.13)
[2017-09-18 08:26] LABS: Partial Thromboplastin Time 27.9 Sec. (24.2-36.6)
--- NOTE | 2017-09-18 08:50 | History and Physical Report ---
History of Present Illness Date of examination: 09/18/17 Date of admission: 09/18/17 Chief complaint: RONALD CARVALHO weakness History of present illness: 52-year-old female presents to the emergency department with a complaint of some left arm numbness and burning sensation, as well as some left facial numbness and left arm weakness. The patient does have a history of a CVA from about 2 years ago that left her with some residual left-sided weakness. The patient reportedly received TPA on that admission. Allegedly she was feeling fine when she went to bed last night. However, she awakened at 3:30 AM and was complaining of the left arm burning as well as some decreased sensation but they waited until about 6:30 to come in and be seen. Therefore, patient was outside of the stroke window. She also has a history of hypertension, hyperlipidemia, diabetes. She did not take anything for her symptoms prior to presentation. She denies any tobacco or illicit drug use or abuse. No nausea or vomiting or diarrhea. No chest pain or shortness of breath. No fever, chills, cough or cold-like symptoms. No headache or visual disturbances. Past History Past Medical History: diabetes, hypertension, hyperlipidemia, seizures, stroke, other (chronic leg pain diverticulitis uses CPAP at night CAD) Past Surgical History: No surgical history Social history: no significant social history Family history: no significant family history Medications and Allergies Allergies Allergy/AdvReac Type Severity Reaction Status Date / Time hydrocodone Allergy Rash Verified 09/18/17 07:12 ketorolac tromethamine Allergy Rash Verified 09/18/17 07:12 [From Toradol] lisinopril Allergy Rash Verified 09/18/17 07:12 morphine Allergy Itching Verified 09/18/17 07:12 pregabalin [From Lyrica] Allergy Rash Verified 09/18/17 07:12 Sulfa (Sulfonamide Allergy Swelling Verified 09/18/17 07:12 Antibiotics) Home Medications Medication Instructions Recorded Confirmed Last Taken Type ALPRAZolam [Xanax TAB] 0.25 mg PO TID PRN #30 tab 11/22/15 05/13/17 Unknown Rx Insulin Aspart Prot/Aspart(Nf) 30 units SQ TID 07/19/16 05/13/17 05/13/17 History [NovoLOG Mix 70/30 VIAL] Insulin NPH/Regular [NovoLIN 70/30] 30 unit SUB-Q BIDDIAB #1 units 07/21/1605/1905/13/17 Rx amLODIPine [Norvasc] 10 mg PO DAILY #30 tablet 07/21/16 05/13/17 05/13/17 Rx oxyCODONE /ACETAMINOPHEN [Percocet 1 tab PO Q6H PRN #20 tablet 07/21/1605/13/17 Rx 5/325 mg] Clopidogrel Bisulfate [Plavix] 75 mg PO DAILY 05/13/17 05/13/17 05/13/17 History Famotidine [Pepcid] 20 mg PO BID #10 tablet 05/13/17 Unknown Rx Review of Systems All systems: negative Exam - Constitutional Vitals: Temp Pulse Resp BP Pulse Ox 59 L 16 144/95 99 09/18/17 07:30 09/18/17 07:38 09/18/17 07:30 09/18/17 07:38 General appearance: Present: no acute distress, well-nourished - EENT Eyes: Present: PERRL ENT: hearing intact, clear oral mucosa - Neck Neck: Present: supple, normal ROM - Respiratory Respiratory effort: normal Respiratory: bilateral: CTA - Cardiovascular Heart Sounds: Present: S1 & S2. Absent: rub, click - Extremities Extremities: pulses symmetrical, No edema Peripheral Pulses: within normal limits - Abdominal General gastrointestinal: Present: soft, non-tender, non-distended, normal bowel sounds Female genitourinary: Present: normal - Integumentary Integumentary: Present: clear, warm, dry - Musculoskeletal Musculoskeletal: gait normal, strength equal bilaterally - Psychiatric Psychiatric: appropriate mood/affect, intact judgment & insight - Neurologic Neurologic: CNII-XII intact, moves all extremities, other (LUE 4/5, LLE 4/5) Results - Labs CBC & Chem 7: 09/18/17 07:24 09/18/17 07:24 Labs: Laboratory Last Values WBC 6.0 K/mm3 (4.5-11.0) 09/18/17 07:24 RBC 4.92 M/mm3 (3.65-5.03) 09/18/17 07:24 Hgb 13.5 gm/dl (10.1-14.3) 09/18/17 07:24 Hct 41.7 % (30.3-42.9) 09/18/17 07:24 MCV 85 fl (79-97) 09/18/17 07:24 MCH 28 pg (28-32) 09/18/17 07:24 MCHC 33 % (30-34) 09/18/17 07:24 RDW 13.0 % (13.2-15.2) L 09/18/17 07:24 Plt Count 330 K/mm3 (140-440) 09/18/17 07:24 Lymph % (Auto) 31.5 % (13.4-35.0) 09/18/17 07:24 [place] % (Auto) 10.7 % (0.0-7.3) H 09/18/17 07:24 Eos % (Auto) 3.6 % (0.0-4.3) 09/18/17 07:24 Baso % (Auto) 0.8 % (0.0-1.8) 09/18/17 07:24 Lymph # 1.9 K/mm3 (1.2-5.4) 09/18/17 07:24 [place] # 0.6 K/mm3 (0.0-0.8) 09/18/17 07:24 Eos # 0.2 K/mm3 (0.0-0.4) 09/18/17 07:24 Baso # 0.0 K/mm3 (0.0-0.1) 09/18/17 07:24 Seg Neutrophils % 53.4 % (40.0-70.0) 09/18/17 07:24 Seg Neutrophils # 3.2 K/mm3 (1.8-7.7) 09/18/17 07:24 PT 12.7 Sec. (12.2-14.9) 09/18/17 07:24 INR 0.91 (0.87-1.13) 09/18/17 07:24 APTT 27.9 Sec. (24.2-36.6) 09/18/17 07:24 Thrombin Time 17.1 Sec. (15.1-19.6) 09/18/17 07:24 Sodium 138 mmol/L (137-145) 09/18/17 07:24 Potassium 3.9 mmol/L (3.6-5.0) 09/18/17 07:24 Chloride 101.8 mmol/L (98-107) 09/18/17 07:24 Carbon Dioxide 21 mmol/L (22-30) L 09/18/17 07:24 Anion Gap 19 mmol/L 09/18/17 07:24 BUN 13 mg/dL (7-17) 09/18/17 07:24 Creatinine 0.8 mg/dL (0.7-1.2) 09/18/17 07:24 Estimated GFR > 60 ml/min 09/18/17 07:24 BUN/Creatinine Ratio 16 % 09/18/17 07:24 Glucose 205 mg/dL (65-100) H 09/18/17 07:24 POC Glucose 185 (70-105) H 09/18/17 07:10 Calcium 9.0 mg/dL (8.4-10.2) 09/18/17 07:24 Troponin T < 0.010 ng/mL (0.00-0.029) 09/18/17 07:24 Assessment and Plan Assessment and plan: Acute CVA. Patient presented outside the stroke window so no TPA was given. Patient will be admitted on the stroke protocol. We will follow-up echocardiogram, MRI/MRA and carotid ultrasound. PT/OT/ST evaluations. Neurology consultation. Hypertension. Resume erythematous medications. Hyperlipidemia. Continue medications. Diabetes mellitus type 2. Continue Accu-Cheks and sliding scale and some. ADA diet. CAD. Continue medical management. DVT prophylaxis.
[2017-09-18] MEDS ORDERED: TYLENOL PO PRN ×2 (08:54→11:00)
[2017-09-18] MEDS ORDERED: SODIUM CHLORIDE FLUSH SYRINGE 10 ML INJ PRN (08:54)
[2017-09-18] MEDS ORDERED: PHENERGAN PR PRN (08:54)
[2017-09-18] MEDS ORDERED: DULCOLAX PR PRN (08:54)
[2017-09-18] MEDS ORDERED: SODIUM CHLORIDE FLUSH SYRINGE 10 ML IV PRN (08:54)
[2017-09-18] MEDS ORDERED: MILK OF MAGNESIA PO PRN (08:54)
[2017-09-18] MEDS ORDERED: REGLAN PO PRN (08:54)
[2017-09-18] MEDS ORDERED: ZOFRAN IV PRN ×2 (08:54)
[2017-09-18] MEDS: SODIUM CHLORIDE FLUSH SYRINGE 10 ML IV SCH ×2 (10:00→21:49)
[2017-09-18] MEDS ORDERED: ATIVAN IV ONE (10:04)
[2017-09-18] MEDS: PERCOCET 5/325 PO PRN ×2 (10:35→15:04)
--- NOTE | 2017-09-18 11:18 | Magnetic Resonance Report ---
MRI OF THE BRAIN WITHOUT CONTRAST: HISTORY: Stroke PROCEDURE: Multiplanar, multisequence MR imaging of the brain without IV contrast was performed. FINDINGS: The brain parenchyma signal intensity and its gay white interface are within normal limits on all sequences. Minimal nonspecific chronic white matter changes are noted. No evidence for acute ischemia, hemorrhage or mass. No chronic infarct or extra-axial fluid collection. The midline structures are central. The basal cisterns are patent. Normal ventricular size. The orbital cavities and sella turcica demonstrate no abnormality. The visualized paranasal sinuses and mastoid air cells are well aerated. IMPRESSION: Unremarkable non-enhanced MRI of the brain.
--- NOTE | 2017-09-18 11:20 | Magnetic Resonance Report ---
MRA HEAD WITHOUT CONTRAST HISTORY: Stroke. [id number] imaging with MIP reformations of the [place] is submitted. The arteries appear widely patent and free of hemodynamically significant stenosis, aneurysm or dissection. IMPRESSION: Unremarkable MRA head.
[2017-09-18] MEDS: LOVENOX SUB-Q SCH (14:52)
[2017-09-18] MEDS ORDERED: XANAX PO PRN (15:19)
[2017-09-18] MEDS ORDERED: PERCOCET 5/325 PO ONE (21:18)
[2017-09-18] MEDS ORDERED: ROXICODONE PO ONE (21:19)
[2017-09-18] MEDS: AMBIEN PO PRN (21:35)
[2017-09-19] MEDS: XANAX PO PRN ×3 (01:22→18:16)
[2017-09-19 07:04] LABS: Hematocrit 40.3 % (30.3-42.9); Hemoglobin 13.2 gm/dl (10.1-14.3); Mean Corpuscular HGB Conc 33 % (30-34); Mean Corpuscular Hemoglobin 28 pg (28-32); Mean Corpuscular Volume 84 fl (79-97); Platelet Count 308 K/mm3 (140-440); Red Blood Count 4.81 M/mm3 (3.65-5.03); Red Cell Distribution Width 13.2 % (13.2-15.2)
[2017-09-19 07:15] LABS: BUN/Creatinine Ratio 17; Blood Urea Nitrogen 12 mg/dL (7-17); Calcium 8.8 mg/dL (8.4-10.2); Chol/HDL Ratio 3.83 %; HDL Cholesterol 37 mg/dL (40-59); Hemolysis Index 16
[2017-09-19 07:31] LABS: LDL Cholesterol,Direct 92 mg/dL (50-130)
[2017-09-19] MEDS: PERCOCET 5/325 PO PRN ×2 (08:55→18:16)
[2017-09-19] MEDS: LOVENOX SUB-Q SCH (09:00)
--- NOTE | 2017-09-19 11:11 | Progress Note ---
Assessment and Plan Assessment and plan: Acute CVA. MRI/MRA was found to be unremarkable. Echocardiogram revealed EF of 55-60% with no intracardiac shunting. Hypertension. Continue antihypertensive medications. Hypokalemia. Replete potassium. Hyperlipidemia. Continue medications. Diabetes mellitus type 2. Continue Accu-Cheks and sliding scale and some. ADA diet. CAD. Continue medical management. DVT prophylaxis. History Interval history: No new issues overnight. Hospitalist Physical - Constitutional Vitals: Temp Pulse Resp BP Pulse Ox 98.3 F 70 20 131/91 99 09/19/17 08:42 09/19/17 08:42 09/19/17 08:42 09/19/17 08:42 09/19/17 08:42 General appearance: Present: no acute distress, well-nourished - EENT Eyes: Present: PERRL, EOM intact ENT: hearing intact, clear oral mucosa, dentition normal - Neck Neck: Present: supple, normal ROM - Respiratory Respiratory effort: normal Respiratory: bilateral: CTA - Cardiovascular Rhythm: regular Heart Sounds: Present: S1 & S2. Absent: gallop, rub - Extremities Extremities: no ischemia, No edema, Full ROM - Abdominal General gastrointestinal: soft, non-tender, non-distended, normal bowel sounds - Integumentary Integumentary: Present: clear, warm, dry - Neurologic Neurologic: CNII-XII intact, moves all extremities Results - Labs CBC & Chem 7: 09/19/17 06:40 09/19/17 06:40 Labs: Laboratory Last Values WBC 4.8 K/mm3 (4.5-11.0) 09/19/17 06:40 RBC 4.81 M/mm3 (3.65-5.03) 09/19/17 06:40 Hgb 13.2 gm/dl (10.1-14.3) 09/19/17 06:40 Hct 40.3 % (30.3-42.9) 09/19/17 06:40 MCV 84 fl (79-97) 09/19/17 06:40 MCH 28 pg (28-32) 09/19/17 06:40 MCHC 33 % (30-34) 09/19/17 06:40 RDW 13.2 % (13.2-15.2) 09/19/17 06:40 Plt Count 308 K/mm3 (140-440) 09/19/17 06:40 Lymph % (Auto) 31.5 % (13.4-35.0) 09/18/17 07:24 [place] % (Auto) 10.7 % (0.0-7.3) H 09/18/17 07:24 Eos % (Auto) 3.6 % (0.0-4.3) 09/18/17 07:24 Baso % (Auto) 0.8 % (0.0-1.8) 09/18/17 07:24 Lymph # 1.9 K/mm3 (1.2-5.4) 09/18/17 07:24 [place] # 0.6 K/mm3 (0.0-0.8) 09/18/17 07:24 Eos # 0.2 K/mm3 (0.0-0.4) 09/18/17 07:24 Baso # 0.0 K/mm3 (0.0-0.1) 09/18/17 07:24 Seg Neutrophils % Bosom Presser 09/19/17 06:40 Seg Neutrophils # 3.2 K/mm3 (1.8-7.7) 09/18/17 07:24 PT 12.7 Sec. (12.2-14.9) 09/18/17 07:24 INR 0.91 (0.87-1.13) 09/18/17 07:24 APTT 27.9 Sec. (24.2-36.6) 09/18/17 07:24 Thrombin Time 17.1 Sec. (15.1-19.6) 09/18/17 07:24 Sodium 139 mmol/L (137-145) 09/19/17 06:40 Potassium 3.3 mmol/L (3.6-5.0) L 09/19/17 06:40 Chloride 101.7 mmol/L (98-107) 09/19/17 06:40 Carbon Dioxide 22 mmol/L (22-30) 09/19/17 06:40 Anion Gap 19 mmol/L 09/19/17 06:40 BUN 12 mg/dL (7-17) 09/19/17 06:40 Creatinine 0.7 mg/dL (0.7-1.2) 09/19/17 06:40 Estimated GFR > 60 ml/min 09/19/17 06:40 BUN/Creatinine Ratio 17 % 09/19/17 06:40 Glucose 94 mg/dL (65-100) 09/19/17 06:40 POC Glucose 91 (70-105) 09/19/17 06:33 Calcium 8.8 mg/dL (8.4-10.2) 09/19/17 06:40 Troponin T < 0.010 ng/mL (0.00-0.029) 09/18/17 07:24 Triglycerides 95 mg/dL (2-149) 09/19/17 06:40 Cholesterol 142 mg/dL (50-199) 09/19/17 06:40 LDL Cholesterol Direct 92 mg/dL (50-130) 09/19/17 06:40 HDL Cholesterol 37 mg/dL (40-59) L 09/19/17 06:40 Cholesterol/HDL Ratio 3.83 % 09/19/17 06:40
[2017-09-19 11:53] LABS: Total Cells Counted 100
[2017-09-19 11:54] LABS: Platelet Estimate Consistent w Auto; RBC Morphology Normal
[2017-09-19] MEDS: SODIUM CHLORIDE FLUSH SYRINGE 10 ML IV SCH ×2 (13:53→22:41)
[2017-09-19] MEDS: AMBIEN PO PRN (22:38)
[2017-09-20] MEDS: PERCOCET 5/325 PO PRN (06:34)
[2017-09-20] MEDS: XANAX PO PRN (06:36)
[2017-09-20 09:15] VITALS: BP 111/73
--- NOTE | 2017-09-20 09:31 | Discharge Summary ---
Providers - Providers Date of Admission: 09/18/17 08:54 Date of discharge: 09/20/17 Attending physician: MIRA ZURITA 09/18/17 08:54 Consult to Case Management [CONS] Routine Services Needed at Discharge: Animal Researcher Notified:: HECTOR Consult to Dietitian/Nutrition [CONS] Routine Physician Instructions: Reason For Exam: Reason for Consult: Nutrition Recommendations Reason for Consult: Diet education Occupational Therapy Evaluate and Treat [CONS] Routine Comment: Reason For Exam: Neuro deficits Physical Therapy Evaluation and Treat [CONS] Routine Comment: Reason For Exam: Neuro deficits Primary care physician: COMPUTER CUSTOMER SUPPORT SPECIALIST Hospitalization Reason for admission: cva Condition: Stable Hospital course: 52-year-old female with past medical history of hypertension, hyperlipidemia and diabetes mellitus presents to the emergency department with a complaint of some left arm numbness and burning sensation, as well as some left facial numbness and left arm weakness. The patient does have a history of a CVA from about 2 years ago that left her with some residual left-sided weakness. The patient reportedly received TPA on that admission. The patient was outside of the TPA window on this admission. Patient's symptoms resolved and she returned to her baseline residual weakness from her previous CVA. MRI/ MRA was found to be unremarkable. Echocardiogram revealed EF of 55-60% but no patent foramine ovale or intracardiac shunting. The patient will be continued on anti-lipids and Plavix given her recurrent CVA for secondary prevention. Physical therapy evaluated the patient and recommended home health PT. Dedicated discharge time 32 minutes. Disposition: [id number] HOME [facility] Time spent for discharge: 32 - Discharge Diagnoses (1) CVA (cerebral vascular accident) Status: Acute Qualifiers: CVA mechanism: thrombosis Precerebral and cerebral artery: unspecified precerebral artery Qualified Code(s): I63.00 - Cerebral infarction due to thrombosis of unspecified precerebral artery Comment: Patient received TPA on the day of admission 11/19/15 (2 days ago). Right hemiparesis is improving. Patient prefers discharge home rather than discharge from hospital to an acute rehabilitation facility. Patient believes that she is ready for discharge home today. She states that she has 14 stairs in her home. Her daughter plans to stay with the patient, for the first week posthospital discharge. Patient's acute stroke occurred while taking daily aspirin therapy. Substitute Plavix in place of aspirin. (2) Left sided numbness Status: Acute (3) HTN (hypertension) Status: Acute Qualifiers: Hypertension type: essential hypertension Qualified Code(s): I10 - Essential (primary) hypertension (4) Diabetes mellitus Status: Chronic Qualifiers: Diabetes mellitus type: type 2 Diabetes mellitus complication status: with neurologic complications (5) HLD (hyperlipidemia) Status: Chronic Qualifiers: Hyperlipidemia type: Mixed hyperlipidemia Qualified Code(s): E78.2 - Mixed hyperlipidemia Comment: cont statins Core Measure Documentation - Palliative Care Palliative Care/ Comfort Measures: Not Applicable - Core Measures Any of the following diagnoses?: stroke - Stroke Discharge Requirements Statin for LDL = or >70 mg/dl on DC: Yes Anticoag for atrial fib/atrial flutter: Not Applicable Antithrombotic for ischemic stroke: Yes Exam - Constitutional Vitals: Temp Pulse Resp BP Pulse Ox 97.5 F L 58 L 18 111/73 100 09/20/17 09:14 09/20/17 09:14 09/20/17 09:14 09/20/17 09:14 09/20/17 09:14 General appearance: Present: no acute distress, well-nourished - EENT Eyes: Present: PERRL ENT: hearing intact, clear oral mucosa - Neck Neck: Present: supple, normal ROM - Respiratory Respiratory effort: normal Respiratory: bilateral: CTA - Cardiovascular Heart Sounds: Present: S1 & S2. Absent: rub, click - Extremities Extremities: pulses symmetrical, No edema Peripheral Pulses: within normal limits - Abdominal General gastrointestinal: Present: soft, non-tender, non-distended, normal bowel sounds Female genitourinary: Present: normal - Integumentary Integumentary: Present: clear, warm, dry - Musculoskeletal Musculoskeletal: gait normal, strength equal bilaterally - Psychiatric Psychiatric: appropriate mood/affect, intact judgment & insight - Neurologic Neurologic: CNII-XII intact, moves all extremities Plan Activity: advance as tolerated, fall precautions Weight Bearing Status: Weight Bear as Tolerated Diet: low fat, low cholesterol, low salt, diabetic Special Instructions: home health RN Follow up with: DEMETRIUS LUCAS MD [Primary Care Provider] - 7 Days TOM RUIZ MD [Staff Physician] - 7 Days Prescriptions: ALPRAZolam [Xanax TAB] 0.5 mg PO TID PRN #15 tablet PRN Reason: Anxiety amLODIPine [Norvasc] 10 mg PO DAILY #30 tablet AtorvaSTATin [Lipitor] 40 mg PO DAILY #30 tablet Clopidogrel Bisulfate [Plavix] 75 mg PO DAILY #30 tablet Ipratropium/Albuterol Sulfate [Combivent Respimat] 1 spray IH QID #30 mist.inhal Oxycodone HCl/Acetaminophen [Percocet 10/325 mg] 1 each PO TID PRN #30 tablet PRN Reason: Pain Spironolactone [Aldactone] 100 mg PO QDAY #30 tablet Zolpidem [Ambien] 10 mg PO QHS #30 tablet
[2017-09-20] MEDS: LOVENOX SUB-Q SCH (09:41)
[2017-09-20] MEDS: SODIUM CHLORIDE FLUSH SYRINGE 10 ML IV SCH (09:42)
== END 2017-09-20 13:56 | disposition home health service (06) | DRG 65 ==
LOC: ED 07:00 → 4A 08:54
PROVIDERS: ADMIT Hospitalist; ATTEND Hospitalist
DX: I63.9 Cerebral infarction, unspecified (principal); I69.354 Hemiplegia and hemiparesis following cerebral infarction affecting left non-dominant side; I10 Essential (primary) hypertension; E11.9 Type 2 diabetes mellitus without complications; E78.5 Hyperlipidemia, unspecified; G89.29 Other chronic pain; I25.10 Atherosclerotic heart disease of native coronary artery without angina pectoris; Z88.8 Allergy status to other drugs, medicaments and biological substances; Z88.2 Allergy status to sulfonamides; Z88.5 Allergy status to narcotic agent; E87.6 Hypokalemia
CPT/HCPCS: 36415; 70450; 70544; 70551; 80048; 80061; 82962; 84484; 85007; 85025; 85610; 85670; 85730; 93005; 93010; 93306; 96374; J1650; J1815; J2060

== ENCOUNTER 2018-04-02 05:47 | Emergency (ER) | payer MEDICAID ==
[2018-04-02] MEDS ORDERED: NACL 0.9% 1000 ML 1,000 ML IV ONE ×2 (06:19→08:18)
[2018-04-02 07:10] LABS: Hematocrit 40.6 % (30.3-42.9); Hemoglobin 13.2 gm/dl (10.1-14.3); Mean Corpuscular HGB Conc 33 % (30-34); Mean Corpuscular Hemoglobin 27 pg (28-32); Mean Corpuscular Volume 84 fl (79-97); Platelet Count 271 K/mm3 (140-440); Red Blood Count 4.85 M/mm3 (3.65-5.03); Red Cell Distribution Width 14.5 % (13.2-15.2)
[2018-04-02 07:40] LABS: Alanine Aminotransferase 17 units/L (7-56); Albumin 4.3 g/dL (3.9-5); BUN/Creatinine Ratio 17; Blood Urea Nitrogen 15 mg/dL (7-17); Calcium 9.6 mg/dL (8.4-10.2); Hemolysis Index 15; Lipase 11 units/L (13-60)
[2018-04-02] MEDS ORDERED: DILAUDID IV ONE ×2 (08:18→10:33)
[2018-04-02] MEDS ORDERED: ZOFRAN IV ONE (08:18)
--- NOTE | 2018-04-02 08:57 | Emergency Department Report ---
ED Abdominal Pain HPI - General Chief Complaint: Abdominal Pain Stated Complaint: AMS Time Seen by Provider: 04/02/18 08:09 Source: patient, family Mode of arrival: Wheelchair Limitations: Physical Limitation - History of Present Illness Initial Comments: 52-year-old female with a past medical history TIA, diabetes, hypertension, seizures, chronic leg pain, CPAP, and diverticulitis who presents to the hospital complains of right flank pain and intermittent confusion 2 days. Patient has been mildly confused for the last 2 days. She states that when her spouse asked her to call where they had been earlier in the day patient forgot. She recognizes me and states my name immediately when I walk in the room and is alert and oriented 3. She is also able to recall that I took care of her father >5 years ago at [facility]. She denies any focal weakness or numbness. She complains of constant 10/10 sharp and aching right-sided flank pain since yesterday that is worse with movement and palpation. Positive nausea without vomiting, melena, hematochezia, diarrhea, dysuria, hematuria, or fever. Patient expresses concern for exacerbation of diverticulitis. Patient is in pain management and chronically takes either percocet 10/325 for chronic sciatic pain. - Related Data Home Medications Medication Instructions Recorded Confirmed Last Taken Insulin Aspart Prot/Aspart(Nf) 30 units SQ TID 07/19/16 09/18/17 09/17/17 [NovoLOG Mix 70/30 VIAL] Previous Rx's Medication Instructions Recorded Last Taken Type ALPRAZolam [Xanax TAB] 0.5 mg PO TID PRN #15 tablet 09/20/17 Unknown Rx AtorvaSTATin [Lipitor] 40 mg PO DAILY #30 tablet 09/20/17 Unknown Rx Clopidogrel Bisulfate [Plavix] 75 mg PO DAILY #30 tablet 09/20/17 Unknown Rx Insulin NPH/Regular [NovoLIN 70/30] 30 unit SUB-Q AC units 09/20/17 Unknown Rx Ipratropium/Albuterol Sulfate 1 spray IH QID #30 mist.inhal 09/20/17 Unknown Rx [Combivent Respimat] Oxycodone HCl/Acetaminophen 1 each PO TID PRN #30 tablet 09/20/17 Unknown Rx [Percocet 10/325 mg] Spironolactone [Aldactone] 100 mg PO QDAY #30 tablet 09/20/17 Unknown Rx Zolpidem [Ambien] 10 mg PO QHS #30 tablet 09/20/17 Unknown Rx amLODIPine [Norvasc] 10 mg PO DAILY #30 tablet 09/20/17 Unknown Rx Ondansetron [Zofran Odt] 4 mg PO Q8HR PRN #20 tab.rapdis 04/02/18 Unknown Rx Allergies Allergy/AdvReac Type Severity Reaction Status Date / Time hydrocodone Allergy Rash Verified 09/18/17 07:12 ketorolac tromethamine Allergy Rash Verified 09/18/17 07:12 [From Toradol] lisinopril Allergy Rash Verified 09/18/17 07:12 morphine Allergy Itching Verified 09/18/17 07:12 pregabalin [From Lyrica] Allergy Rash Verified 09/18/17 07:12 Sulfa (Sulfonamide Allergy Swelling Verified 09/18/17 07:12 Antibiotics) ED Review of Systems ROS: Stated complaint: AMS Other details as noted in HPI Comment: All other systems reviewed and negative ED Past Medical Hx - Past Medical History Hx Hypertension: Yes Hx CVA: Yes (TIA) Hx Congestive Heart Failure: No Hx Diabetes: Yes Hx Sickle Cell Disease: No Hx Seizures: Yes Hx Asthma: No Hx COPD: No Hx HIV: No Additional medical history: chronic leg pain diverticulitis uses CPAP at night CAD - Surgical History Additional Surgical History: - Social History Smoking Status: Never Smoker Substance Use Type: None - Medications Home Medications: Home Medications Medication Instructions Recorded Confirmed Last Taken Type Insulin Aspart Prot/Aspart(Nf) 30 units SQ TID 07/19/16 09/18/17 09/17/17 History [NovoLOG Mix 70/30 VIAL] ALPRAZolam [Xanax TAB] 0.5 mg PO TID PRN #15 tablet 09/20/17 Unknown Rx AtorvaSTATin [Lipitor] 40 mg PO DAILY #30 tablet 09/20/17 Unknown Rx Clopidogrel Bisulfate [Plavix] 75 mg PO DAILY #30 tablet 09/20/17 Unknown Rx Insulin NPH/Regular [NovoLIN 70/30] 30 unit SUB-Q AC units 09/20/17 Unknown Rx Ipratropium/Albuterol Sulfate 1 spray IH QID #30 mist.inhal 09/20/17 Unknown Rx [Combivent Respimat] Oxycodone HCl/Acetaminophen 1 each PO TID PRN #30 tablet 09/20/17 Unknown Rx [Percocet 10/325 mg] Spironolactone [Aldactone] 100 mg PO QDAY #30 tablet 09/20/17 Unknown Rx Zolpidem [Ambien] 10 mg PO QHS #30 tablet 09/20/17 Unknown Rx amLODIPine [Norvasc] 10 mg PO DAILY #30 tablet 09/20/17 Unknown Rx Ondansetron [Zofran Odt] 4 mg PO Q8HR PRN #20 tab.rapdis 04/02/18 Unknown Rx ED Physical Exam - General Limitations: Physical Limitation - Other Other exam information: General: No limitations, patient is alert in no acute distress Head exam: Atraumatic, normocephalic Eyes exam: Normal appearance, pupils equal reactive to light, extraocular movements intact ENT: Moist mucous membrane, normal oropharynx Neck exam: Normal inspection, full range of motion, no meningismus nontender Respiratory exam: Clear to auscultation bilateral, no wheezes, rales, crackles Cardiovascular: Normal rate and rhythm, normal heart sounds Abdomen: Soft, nondistended, and nontender, with normal bowel sounds, no rebound, or guarding Extremity: Full range of motion normal inspection no deformity Back: Normal Inspection, full range of motion, right flank tenderness Neurologic: Alert, oriented x3, cranial nerves intact, no motor or sensory deficit Psychiatric: normal affect, normal mood Skin: Warm, dry, intact ED Course Vital Signs 04/02/18 04/02/18 04/02/18 05:54 06:08 08:04 Temperature 98.9 F 98.9 F Pulse Rate 91 H 86 Respiratory 18 18 Rate Blood Pressure 148/106 148/106 Blood Pressure [Right] O2 Sat by Pulse 97 97 98 Oximetry 04/02/18 11:15 Temperature Pulse Rate 81 Respiratory 16 Rate Blood Pressure Blood Pressure 135/93 [Right] O2 Sat by Pulse 98 Oximetry ED Medical Decision Making - Lab Data Result diagrams: 04/02/18 06:30 04/02/18 06:30 Lab Results 04/02/18 04/02/18 04/02/18 Range/Units 05:57 06:30 06:30 WBC 4.2 L (4.5-11.0) K/mm3 RBC 4.85 (3.65-5.03) M/mm3 Hgb 13.2 (10.1-14.3) gm/dl Hct 40.6 (30.3-42.9) % MCV 84 (79-97) fl MCH 27 L (28-32) pg MCHC 33 (30-34) % RDW 14.5 (13.2-15.2) % Plt Count 271 (140-440) K/mm3 Add Manual Diff Complete Total Counted 100 Seg Neutrophils % Research Quality Assurance Specialist Seg Neuts % (Manual) 28.0 L (40.0-70.0) % Band Neutrophils % 0 % Lymphocytes % (Manual) 58.0 H (13.4-35.0) % Reactive Lymphs % (Man) 2.0 % Monocytes % (Manual) 7.0 (0.0-7.3) % Eosinophils % (Manual) 3.0 (0.0-4.3) % Basophils % (Manual) 2.0 H (0.0-1.8) % Metamyelocytes % 0 % Myelocytes % 0 % Promyelocytes % 0 % Blast Cells % 0 % Nucleated RBC % Not Reportable Seg Neutrophils # Man 1.2 L (1.8-7.7) K/mm3 Band Neutrophils # 0.0 K/mm3 Lymphocytes # (Manual) 2.4 (1.2-5.4) K/mm3 Abs React Lymphs (Man) 0.1 K/mm3 Monocytes # (Manual) 0.3 (0.0-0.8) K/mm3 Eosinophils # (Manual) 0.1 (0.0-0.4) K/mm3 Basophils # (Manual) 0.1 (0.0-0.1) K/mm3 Metamyelocytes # 0.0 K/mm3 Myelocytes # 0.0 K/mm3 Promyelocytes # 0.0 K/mm3 Blast Cells # 0.0 K/mm3 WBC Morphology Not Reportable Hypersegmented Neuts Not Reportable Hyposegmented Neuts Not Reportable Hypogranular Neuts Not Reportable Smudge Cells Not Reportable Toxic Granulation Not Reportable Toxic Vacuolation Not Reportable Dohle Bodies Not Reportable Pelger-Huet Anomaly Not Reportable [place] Rods Not Reportable Platelet Estimate Cons Clumped Platelets Not Reportable Plt Clumps, EDTA Not Reportable Large Platelets Not Reportable Giant Platelets Not Reportable Platelet Satelliting Not Reportable Plt Morphology Comment Not Reportable RBC Morphology Not Reportable Dimorphic RBCs Not Reportable Polychromasia Not Reportable Hypochromasia Not Reportable Poikilocytosis Not Reportable Anisocytosis 1+ Microcytosis Not Reportable Macrocytosis Not Reportable Spherocytes Not Reportable Pappenheimer Bodies Not Reportable Sickle Cells Not Reportable Target Cells Not Reportable Tear Drop Cells Not Reportable Ovalocytes Not Reportable Helmet Cells Not Reportable [place] Bodies Not Reportable [place] Rings Not Reportable [place] Cells Not Reportable Bite Cells Not Reportable Crenated Cell Not Reportable Elliptocytes Not Reportable Acanthocytes (Spur) Not Reportable Rouleaux Not Reportable Hemoglobin C Crystals Not Reportable Schistocytes Not Reportable Malaria parasites Not Reportable [place] Bodies Not Reportable Hem Pathologist Commnt No Sodium 138 (137-145) mmol/L Potassium 3.9 (3.6-5.0) mmol/L Chloride 101.3 (98-107) mmol/L Carbon Dioxide 22 (22-30) mmol/L Anion Gap 19 mmol/L BUN 15 (7-17) mg/dL Creatinine 0.9 (0.7-1.2) mg/dL Estimated GFR > 60 ml/min BUN/Creatinine Ratio 17 % Glucose 249 H (65-100) mg/dL POC Glucose 239 H (70-105) Calcium 9.6 (8.4-10.2) mg/dL Total Bilirubin 0.30 (0.1-1.2) mg/dL AST 17 (5-40) units/L ALT 17 (7-56) units/L Alkaline Phosphatase 118 (35-129) units/L Total Protein 8.3 H (6.3-8.2) g/dL Albumin 4.3 (3.9-5) g/dL Albumin/Globulin Ratio 1.1 % Lipase 11 L (13-60) units/L HCG, Qual (Negative) Urine Color (Yellow) Urine Turbidity (Clear) Urine pH (5.0-7.0) Ur Specific [place] (1.003-1.030) Urine Protein (Negative) mg/dL Urine Glucose (UA) (Negative) mg/dL Urine Ketones (Negative) mg/dL Urine Blood (Negative) Urine Nitrite (Negative) Urine Bilirubin (Negative) Urine Urobilinogen (<2.0) mg/dL Ur Leukocyte Esterase (Negative) Urine WBC (Auto) (0.0-6.0) /HPF Urine RBC (Auto) (0.0-6.0) /HPF U Epithel Cells (Auto) (0-13.0) /HPF Urine Mucus /HPF 04/02/18 04/02/18 Range/Units 06:30 09:42 WBC (4.5-11.0) K/mm3 RBC (3.65-5.03) M/mm3 Hgb (10.1-14.3) gm/dl Hct (30.3-42.9) % MCV (79-97) fl MCH (28-32) pg MCHC (30-34) % RDW (13.2-15.2) % Plt Count (140-440) K/mm3 Add Manual Diff Total Counted Seg Neutrophils % Seg Neuts % (Manual) (40.0-70.0) % Band Neutrophils % % Lymphocytes % (Manual) (13.4-35.0) % Reactive Lymphs % (Man) % Monocytes % (Manual) (0.0-7.3) % Eosinophils % (Manual) (0.0-4.3) % Basophils % (Manual) (0.0-1.8) % Metamyelocytes % % Myelocytes % % Promyelocytes % % Blast Cells % % Nucleated RBC % Seg Neutrophils # Man (1.8-7.7) K/mm3 Band Neutrophils # K/mm3 Lymphocytes # (Manual) (1.2-5.4) K/mm3 Abs React Lymphs (Man) K/mm3 Monocytes # (Manual) (0.0-0.8) K/mm3 Eosinophils # (Manual) (0.0-0.4) K/mm3 Basophils # (Manual) (0.0-0.1) K/mm3 Metamyelocytes # K/mm3 Myelocytes # K/mm3 Promyelocytes # K/mm3 Blast Cells # K/mm3 WBC Morphology Hypersegmented Neuts Hyposegmented Neuts Hypogranular Neuts Smudge Cells Toxic Granulation Toxic Vacuolation Dohle Bodies Pelger-Huet Anomaly [place] Rods Platelet Estimate Clumped Platelets Plt Clumps, EDTA Large Platelets Giant Platelets Platelet Satelliting Plt Morphology Comment RBC Morphology Dimorphic RBCs Polychromasia Hypochromasia Poikilocytosis Anisocytosis Microcytosis Macrocytosis Spherocytes Pappenheimer Bodies Sickle Cells Target Cells Tear Drop Cells Ovalocytes Helmet Cells [place] Bodies [place] Rings [place] Cells Bite Cells Crenated Cell Elliptocytes Acanthocytes (Spur) Rouleaux Hemoglobin C Crystals Schistocytes Malaria parasites [place] Bodies Hem Pathologist Commnt Sodium (137-145) mmol/L Potassium (3.6-5.0) mmol/L Chloride (98-107) mmol/L Carbon Dioxide (22-30) mmol/L Anion Gap mmol/L BUN (7-17) mg/dL Creatinine (0.7-1.2) mg/dL Estimated GFR ml/min BUN/Creatinine Ratio % Glucose (65-100) mg/dL POC Glucose (70-105) Calcium (8.4-10.2) mg/dL Total Bilirubin (0.1-1.2) mg/dL AST (5-40) units/L ALT (7-56) units/L Alkaline Phosphatase (35-129) units/L Total Protein (6.3-8.2) g/dL Albumin (3.9-5) g/dL Albumin/Globulin Ratio % Lipase (13-60) units/L HCG, Qual Negative (Negative) Urine Color Yellow (Yellow) Urine Turbidity Clear (Clear) Urine pH 5.0 (5.0-7.0) Ur Specific [place] 1.041 H (1.003-1.030) Urine Protein 30 mg/dl (Negative) mg/dL Urine Glucose (UA) 50 (Negative) mg/dL Urine Ketones Neg (Negative) mg/dL Urine Blood Neg (Negative) Urine Nitrite Neg (Negative) Urine Bilirubin Neg (Negative) Urine Urobilinogen < 2.0 (<2.0) mg/dL Ur Leukocyte Esterase Tr (Negative) Urine WBC (Auto) 2.0 (0.0-6.0) /HPF Urine RBC (Auto) 2.0 (0.0-6.0) /HPF U Epithel Cells (Auto) 5.0 (0-13.0) /HPF Urine Mucus Few /HPF - Radiology Data Radiology results: report reviewed CT HEAD WITHOUT CONTRAST: HISTORY: Intermittent confusion. TECHNIQUE: Sequential 2.5mm CT images. COMPARISON: 09/18/17. FINDINGS: Cerebral Parenchyma: Within normal limits. Cerebellum: Within normal limits. Brainstem: Within normal limits. Ventricles: Normal. Sella: Normal. Extra-axial spaces: Normal. Basal Cisterns: Normal. Intracranial Hemorrhage: None. Midline Shift: None. Calvarium: Normal. Sinuses: Normal. Mastoid Air Cells: Normal. Visualized Orbits : Normal. IMPRESSION: Cranial CT scan within normal limits. CT ABDOMEN PELVIS WITH CONTRAST: HISTORY: Right flank pain, history of diverticulitis. COMPARISON: none. TECHNIQUE: Helical CT in 1.25mm intervals following IV contrast. Sagittal and coronal reconstructions. FINDINGS: Lung bases: Mild cardiomegaly. Trace right pleural effusion. The visualized lung bases are adequately aerated. Liver: Normal. Biliary system: At least one tiny gallstone is identified in the fundus of the gallbladder. No biliary dilatation or inflammation. Pancreas: Normal. Spleen: Normal. Kidneys/ureters/bladder: Normal. Adrenal glands: Normal. Aorta: Normal. Intestines: No oral contrast was administered which limits evaluation of the GI system. There is no evidence for obstruction or focal inflammation. Scattered diverticula are identified throughout the length of the colon but no convincing acute diverticulitis. Appendix: Normal. Pelvic viscera: At least 4 exophytic uterine fibroids are identified measuring up to 4 cm in diameter. The adnexa are unremarkable. Ascites: None. Adenopathy: None. Musculoskeletal: Normal. IMPRESSION: No acute inflammatory process is identified. Diverticulosis but no evidence for diverticulitis. Uterine fibroid disease. Tiny gallstone. Mild cardiomegaly and trace right pleural effusion. - Medical Decision Making Patient has reproducible right-sided back/flank pain CT reports and labs reviewed Patient form of the incidental findings of acute infection or surgical emergency Patient is alert and oriented 3 with steady gait and ED Patient takes narcotics chronically and goes to pain management Additional Zofran will be provided as needed for nausea She received Dilaudid, Zofran, and normal saline in the ED - Differential Diagnosis UTI, CVA, encephalopathy, renal colic, biliary colic,strain, diverticulitis Critical Care Time: No Critical care attestation.: If time is entered above; I have spent that time in minutes in the direct care of this critically ill patient, excluding procedure time. ED Disposition Clinical Impression: Diabetes mellitus, HTN (hypertension), Right flank pain, Chronic pain, Dehydration, Fibroids, Gallstone Disposition: TO HOME OR SELFCARE Is pt being admited?: No Does the pt Need Aspirin: No Condition: Stable Instructions: Uterine Fibroids (ED), Biliary Colic (ED), Flank Pain (ED) Additional Instructions: Take the medication as prescribed. Follow up with your doctor and a home care and home health aides teacher doctor. Return if symptoms worsen as indicated by your discharge instructions Prescriptions: Ondansetron [Zofran Odt] 4 mg PO Q8HR PRN #20 tab.rapdis PRN Reason: Nausea And Vomiting Referrals: PRIMARY MD SHAYY [Primary Care Provider] - 3-5 Days FREDDIE GARZA MD [Staff Physician] - 3-5 Days (EXTRACTOR PULLER ) Time of Disposition: :11 - Assessment Assessment Interval: Baseline - Level of Consciousness 1a. Level of Consciousness: alert/keenly responsive - LOC Questions 1b. LOC Questions: answers both correctly - LOC Command 1c. LOC Commands: performs tasks correctly - Best Gaze 2. Best Gaze: normal - Visual 3. Visual: no visual loss - Facial Palsy 4. Facial Palsy: normal symmetrical movement - Motor Arm 5b. Motor Arm Right: no drift 5a. Motor Arm Left: no drift - Motor Leg 6a. Motor Leg Left: no drift 6b. Motor Leg Right: no drift - Limb Ataxia 7. Limb Ataxia: absent - Sensory 8. Sensory: normal - Best Language 9. Best Language: no aphasia - Dysarthria 10. Dysarthria: normal - Extinction and Inattention 11. Extinction/Inattention: no abnormality - Scoring Total Score: 0 Stroke Severity: No Stroke Symptoms
--- NOTE | 2018-04-02 09:13 | Cat Scan Report ---
CT HEAD WITHOUT CONTRAST: HISTORY: Intermittent confusion. TECHNIQUE: Sequential 2.5mm CT images. COMPARISON: 09/18/17. FINDINGS: Cerebral Parenchyma: Within normal limits. Cerebellum: Within normal limits. Brainstem: Within normal limits. Ventricles: Normal. Sella: Normal. Extra-axial spaces: Normal. Basal Cisterns: Normal. Intracranial Hemorrhage: None. Midline Shift: None. Calvarium: Normal. Sinuses: Normal. Mastoid Air Cells: Normal. Visualized Orbits: Normal. IMPRESSION: Cranial CT scan within normal limits.
--- NOTE | 2018-04-02 09:26 | Cat Scan Report ---
CT ABDOMEN PELVIS WITH CONTRAST: HISTORY: Right flank pain, history of diverticulitis. COMPARISON: none. TECHNIQUE: Helical CT in 1.25mm intervals following IV contrast. Sagittal and coronal reconstructions. FINDINGS: Lung bases: Mild cardiomegaly. Trace right pleural effusion. The visualized lung bases are adequately aerated. Liver: Normal. Biliary system: At least one tiny gallstone is identified in the fundus of the gallbladder. No biliary dilatation or inflammation. Pancreas: Normal. Spleen: Normal. Kidneys/ureters/bladder: Normal. Adrenal glands: Normal. Aorta: Normal. Intestines: No oral contrast was administered which limits evaluation of the GI system. There is no evidence for obstruction or focal inflammation. Scattered diverticula are identified throughout the length of the colon but no convincing acute diverticulitis. Appendix: Normal. Pelvic viscera: At least 4 exophytic uterine fibroids are identified measuring up to 4 cm in diameter. The adnexa are unremarkable. Ascites: None. Adenopathy: None. Musculoskeletal: Normal. IMPRESSION: No acute inflammatory process is identified. Diverticulosis but no evidence for diverticulitis. Uterine fibroid disease. Tiny gallstone. Mild cardiomegaly and trace right pleural effusion.
[2018-04-02 10:00] LABS: Anisocytosis 1+; Platelet Estimate Cons; Total Cells Counted 100
[2018-04-02 10:43] LABS: Bilirubin,Urine NEG (Negative); Blood,Urine NEG (Negative); Color,Urine Yellow (Yellow); Mucus,Urine FEW /HPF; Urobilinogen,Urine < 2.0 mg/dL (<2.0)
[2018-04-02 11:16] VITALS: BP 135/93
== END 2018-04-02 11:46 | disposition home or self-care (01) ==
LOC: ED 05:47
DX: E86.0 Dehydration (principal); E11.69 Type 2 diabetes mellitus with other specified complication; I10 Essential (primary) hypertension; D21.9 Benign neoplasm of connective and other soft tissue, unspecified; K80.80 Other cholelithiasis without obstruction; G89.29 Other chronic pain; Z86.73 Personal history of transient ischemic attack (TIA), and cerebral infarction without residual deficits; Z79.899 Other long term (current) drug therapy; Z88.6 Allergy status to analgesic agent; Z88.2 Allergy status to sulfonamides; Z88.8 Allergy status to other drugs, medicaments and biological substances
CPT/HCPCS: 36415; 70450; 74177; 80053; 81001; 82962; 83690; 84703; 85007; 85025; 96361; 96374; 96375; 96376; 99284; J1170; J2405; J7030; Q9967

== ENCOUNTER 2018-04-03 00:35 | Emergency (ER) | payer MEDICAID ==
[2018-04-03 03:50] VITALS: BP 123/87
== END 2018-04-03 04:25 | disposition left against medical advice (07) ==
LOC: ED 00:35
DX: R10.9 Unspecified abdominal pain (principal); Z53.21 Procedure and treatment not carried out due to patient leaving prior to being seen by health care provider

== ENCOUNTER 2019-05-04 19:59 | Observation (INO) | payer MEDICAID ==
[2019-05-04 21:24] LABS: Basophils # (Auto) 0.1 K/mm3 (0.0-0.1); Basophils % (Auto) 0.9 % (0.0-1.8); Eosinophils # (Auto) 0.1 K/mm3 (0.0-0.4); Eosinophils % (Auto) 2.1 % (0.0-4.3); Hematocrit 43.7 % (30.3-42.9); Hemoglobin 14.3 gm/dl (10.1-14.3); Lymphocytes # (Auto) 3.5 K/mm3 (1.2-5.4); Lymphocytes % (Auto) 50.9 % (13.4-35.0); Mean Corpuscular HGB Conc 33 % (30-34); Mean Corpuscular Volume 85 fl (79-97); Monocytes # (Auto) 0.5 K/mm3 (0.0-0.8); Platelet Count 311 K/mm3 (140-440); Red Blood Count 5.15 M/mm3 (3.65-5.03); Red Cell Distribution Width 14.2 % (13.2-15.2)
[2019-05-04 21:39] LABS: Alanine Aminotransferase 14 units/L (7-56); Albumin 4.7 g/dL (3.9-5); BUN/Creatinine Ratio 16; Blood Urea Nitrogen 14 mg/dL (7-17); Calcium 9.9 mg/dL (8.4-10.2); Hemolysis Index 7
[2019-05-04] MEDS ORDERED: POTASSIUM CHLORIDE ER 20 MEQ TAB PO ONE (21:42)
--- NOTE | 2019-05-04 22:49 | Cat Scan Report ---
CT HEAD WITHOUT CONTRAST INDICATION / CLINICAL INFORMATION: ams, possible od. TECHNIQUE: All CT scans at this location are performed using CT dose reduction for ALARA by means of automated e xposure control. COMPARISON: CT dated 04/02/18 FINDINGS: HEMORRHAGE: None. EXTRA-AXIAL SPACES: Normal in size and morphology for the patient's age. VENTRICULAR SYSTEM: Normal in size and morphology for the patient's age. CEREBRAL PARENCHYMA: No significant abnormality. No acute territorial infarct. MIDLINE SHIFT OR HERNIATION: None. CEREBELLUM / BRAINSTEM: No significant abnormality. ORBITS: Normal as visualized. SOFT TISSUES of HEAD: No significant abnormality. CALVARIUM: No significant abnormality. PARANASAL SINUSES / MASTOID AIR CELLS: Normal as visualized. ADDITIONAL FINDINGS: None. IMPRESSION: 1. No acute intracranial abnormality. No change. Signer Name: Jair Johnston MD Signed: 05/04/2019 10:45 PM Workstation Name: [id number]
--- NOTE | 2019-05-04 23:00 | Emergency Department Report ---
History of Present Illness - General Chief Complaint: Overdose Stated Complaint: POSS OVERDOSE ON MEDS Time Seen by Provider: 05/04/19 20:12 Source: EMS Mode of arrival: Stretcher Limitations: No Limitations - History of Present Illness Initial Comments: 53-year-old [id number] female with a past medical history SHAGUFTA, TIAs, hypertension, CVA with residual left leg weakness, seizures, chronic pain with narcotic use presents to the hospital complains of possible medication overdose. Patient apparently got 30 tablets of Ambien filled yesterday and now the , only find 6 tablets. Patient has a habit of taking several tablets medication out of the original prescription bottle and putting it in an old bottle. Patient founds the 6 tablets in an old bottle and cannot find the new bottle. Pt states the medicine is at home somewhere. suspected patient does this so that her meds cannot be tracked. Patient is prescribed Ambien agustín ly at bedtime and typically takes 1-1.5 tablets. Patient states she took 1.5 tablet an hour prior to arrival. Patient states that since yesterday patient has not been acting normal. Yesterday she was sweeping the kitchen floor with a mop. Today while attempting to walk to the store he had to support her and she has been more sedated and confused. Has been expresses concern because patient has had several strokes in the past. Patient is sleeping intermittently during examination and requesting narcotic pain medication. She currently takes Percocet 10 mg for chronic pain and states the last dose was 1 PM. - Related Data Home Medications Medication Instructions Recorded Confirmed Last Taken Insulin Aspart Prot/Aspart(Nf) 30 units SQ TID 07/19/16 09/18/17 09/17/17 [NovoLOG Mix 70/30 VIAL] Previous Rx's Medication Instructions Recorded Last Taken Type ALPRAZolam [Xanax TAB] 0.5 mg PO TID PRN #15 tablet 09/20/17 Unknown Rx AtorvaSTATin [Lipitor] 40 mg PO DAILY #30 tablet 09/20/17 Unknown Rx Clopidogrel Bisulfate [Plavix] 75 mg PO DAILY #30 tablet 09/20/17 Unknown Rx Insulin NPH/Regular [NovoLIN 70/30] 30 unit SUB-Q AC units 09/20/17 Unknown Rx Ipratropium/Albuterol Sulfate 1 spray IH QID #30 mist.inhal 09/20/17 Unknown Rx [Combivent Respimat] Oxycodone HCl/Acetaminophen 1 each PO TID PRN #30 tablet 09/20/17 Unknown Rx [Percocet 10/325 mg] Spironolactone [Aldactone] 100 mg PO QDAY #30 tablet 09/20/17 Unknown Rx Zolpidem [Ambien] 10 mg PO QHS #30 tablet 09/20/17 Unknown Rx amLODIPine 10 mg PO DAILY #30 tablet 09/20/17 Unknown Rx Ondansetron [Zofran Odt] 4 mg PO Q8HR PRN #20 tab.rapdis 04/02/18 Unknown Rx Allergies Allergy/AdvReac Type Severity Reaction Status Date / Time hydrocodone Allergy Rash Verified 09/18/17 07:12 ketorolac tromethamine Allergy Rash Verified 09/18/17 07:12 [From Toradol] lisinopril Allergy Rash Verified 09/18/17 07:12 morphine Allergy Itching Verified 09/18/17 07:12 pregabalin [From Lyrica] Allergy Rash Verified 09/18/17 07:12 Sulfa (Sulfonamide Allergy Swelling Verified 09/18/17 07:12 Antibiotics) ED Review of Systems ROS: Stated complaint: POSS OVERDOSE ON MEDS Other details as noted in HPI ED Past Medical Hx - Past Medical History Hx Hypertension: Yes Hx CVA: Yes (TIA) Hx Congestive Heart Failure: No Hx Diabetes: Yes Hx Sickle Cell Disease: No Hx Seizures: Yes Hx Asthma: No Hx COPD: No Hx HIV: No Additional medical history: chronic leg pain diverticulitis uses CPAP at night CAD - Surgical History Additional Surgical History: - Social History Smoking Status: Never Smoker Substance Use Type: None - Medications Home Medications: Home Medications Medication Instructions Recorded Confirmed Last Taken Type Insulin Aspart Prot/Aspart(Nf) 30 units SQ TID 07/19/16 09/18/17 09/17/17 History [NovoLOG Mix 70/30 VIAL] ALPRAZolam [Xanax TAB] 0.5 mg PO TID PRN #15 tablet 09/20/17 Unknown Rx AtorvaSTATin [Lipitor] 40 mg PO DAILY #30 tablet 09/20/17 Unknown Rx Clopidogrel Bisulfate [Plavix] 75 mg PO DAILY #30 tablet 09/20/17 Unknown Rx Insulin NPH/Regular [NovoLIN 70/30] 30 unit SUB-Q AC units 09/20/17 Unknown Rx Ipratropium/Albuterol Sulfate 1 spray IH QID #30 mist.inhal 09/20/17 Unknown Rx [Combivent Respimat] Oxycodone HCl/Acetaminophen 1 each PO TID PRN #30 tablet 09/20/17 Unknown Rx [Percocet 10/325 mg] Spironolactone [Aldactone] 100 mg PO QDAY #30 tablet 09/20/17 Unknown Rx Zolpidem [Ambien] 10 mg PO QHS #30 tablet 09/20/17 Unknown Rx amLODIPine 10 mg PO DAILY #30 tablet 09/20/17 Unknown Rx Ondansetron [Zofran Odt] 4 mg PO Q8HR PRN #20 tab.rapdis 04/02/18 Unknown Rx ED Physical Exam - General Limitations: No Limitations - Other Other exam information: General: No acute distress Head: Atraumatic Eyes: normal appearance pupils equal reactive to light ENT: Moist mucous membranes Neck: Normal appearance, no midline tenderness Chest: Clear to auscultation bilaterally CV: Mild tachycardia Abdomen: Soft, normal bowel sounds, nontender, nondistended, no rebound or guarding Back: Normal inspection Extremity: Normal inspection infection, full range of motion Neuro: Lethargic but arousable. Oriented 3. No facial asymmetry. Speech slurred and slow. 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 Mild decrease in strength on left foot dorsiflexion 4/5 compared to the right Psych: Appropriate behavior plantar flexion 4/5 compared to the right Skin: No rash ED Course Vital Signs 05/04/19 05/04/19 05/04/19 20:09 20:14 20:16 Temperature 98.6 F Pulse Rate 106 H 118 H Respiratory 18 28 H Rate Blood Pressure 145/111 122/81 O2 Sat by Pulse 96 96 91 Oximetry 05/04/19 05/04/19 05/04/19 20:30 20:45 21:00 Temperature Pulse Rate 99 H 97 H 101 H Respiratory 12 20 22 Rate Blood Pressure 122/81 146/107 143/110 O2 Sat by Pulse 96 95 98 Oximetry 05/04/19 05/04/19 05/04/19 21:15 21:31 21:45 Temperature Pulse Rate 100 H 102 H 98 H Respiratory 21 22 19 Rate Blood Pressure 138/100 158/111 139/102 O2 Sat by Pulse 95 Oximetry 11/08/2105/04/19 05/04/19 22:00 22:15 22:30 Temperature Pulse Rate 96 H 111 H 103 H Respiratory 17 20 20 Rate Blood Pressure 161/114 156/111 149/102 O2 Sat by Pulse 95 99 98 Oximetry 05/04/19 05/04/19 22:45 23:00 Temperature Pulse Rate 103 H 97 H Respiratory 22 23 Rate Blood Pressure 143/100 148/107 O2 Sat by Pulse 98 100 Oximetry - Reevaluation(s) Reevaluation #1: 05/04/19 23:04 During ED stay. Patient is drowsy but arousable. She is immediately asking for Dilaudid for pain. Glucose it decreased to less than 60 and patient was provided with improved repeat glucose. By mouth potassium provided. Mild hypokalemia. Plan to admit patient to the hospital with a signed 2013 until medical clearance and psych evaluation. - Consultations Consultation #1: 05/04/19 23:00 [place] control [place] contacted at this time. Case d/w Nelia, states drowiness main effect. However, patient's tried to stay awake they may experience confusion, agitation, hallucinations. It takes about 8 hours to wear off so observation warranted until baseline. ED Medical Decision Making - Lab Data Result diagrams: 05/04/19 20:59 05/04/19 20:59 Lab Results 05/04/19 05/04/19 05/04/19 Range/Units 20:41 20:59 20:59 WBC 6.8 (4.5-11.0) K/mm3 RBC 5.15 H (3.65-5.03) M/mm3 Hgb 14.3 (10.1-14.3) gm/dl Hct 43.7 H (30.3-42.9) % MCV 85 (79-97) fl MCH 28 (28-32) pg MCHC 33 (30-34) % RDW 14.2 (13.2-15.2) % Plt Count 311 (140-440) K/mm3 Lymph % (Auto) 50.9 H (13.4-35.0) % [place] % (Auto) 8.0 H (0.0-7.3) % Eos % (Auto) 2.1 (0.0-4.3) % Baso % (Auto) 0.9 (0.0-1.8) % Lymph # 3.5 (1.2-5.4) K/mm3 [place] # 0.5 (0.0-0.8) K/mm3 Eos # 0.1 (0.0-0.4) K/mm3 Baso # 0.1 (0.0-0.1) K/mm3 Seg Neutrophils % 38.1 L (40.0-70.0) % Seg Neutrophils # 2.6 (1.8-7.7) K/mm3 Sodium 139 (137-145) mmol/L Potassium 3.3 L (3.6-5.0) mmol/L Chloride 100.2 (98-107) mmol/L Carbon Dioxide 25 (22-30) mmol/L Anion Gap 17 mmol/L BUN 14 (7-17) mg/dL Creatinine 0.9 (0.7-1.2) mg/dL Estimated GFR > 60 ml/min BUN/Creatinine Ratio 16 % Glucose 60 L (65-100) mg/dL POC Glucose 73 (70-105) Calcium 9.9 (8.4-10.2) mg/dL Magnesium 2.00 (1.7-2.3) mg/dL Total Bilirubin 0.40 (0.1-1.2) mg/dL AST 19 (5-40) units/L ALT 14 (7-56) units/L Alkaline Phosphatase 100 (35-129) units/L Total Protein 8.4 H (6.3-8.2) g/dL Albumin 4.7 (3.9-5) g/dL Albumin/Globulin Ratio 1.3 % Salicylates (2.8-20.0) mg/dL Acetaminophen (10.0-30.0) ug/mL Plasma/Serum Alcohol (0-0.07) % 05/04/19 05/04/19 05/04/19 Range/Units 20:59 20:59 20:59 WBC (4.5-11.0) K/mm3 RBC (3.65-5.03) M/mm3 Hgb (10.1-14.3) gm/dl Hct (30.3-42.9) % MCV (79-97) fl MCH (28-32) pg MCHC (30-34) % RDW (13.2-15.2) % Plt Count (140-440) K/mm3 Lymph % (Auto) (13.4-35.0) % [place] % (Auto) (0.0-7.3) % Eos % (Auto) (0.0-4.3) % Baso % (Auto) (0.0-1.8) % Lymph # (1.2-5.4) K/mm3 [place] # (0.0-0.8) K/mm3 Eos # (0.0-0.4) K/mm3 Baso # (0.0-0.1) K/mm3 Seg Neutrophils % (40.0-70.0) % Seg Neutrophils # (1.8-7.7) K/mm3 Sodium (137-145) mmol/L Potassium (3.6-5.0) mmol/L Chloride (98-107) mmol/L Carbon Dioxide (22-30) mmol/L Anion Gap mmol/L BUN (7-17) mg/dL Creatinine (0.7-1.2) mg/dL Estimated GFR ml/min BUN/Creatinine Ratio % Glucose (65-100) mg/dL POC Glucose (70-105) Calcium (8.4-10.2) mg/dL Magnesium (1.7-2.3) mg/dL Total Bilirubin (0.1-1.2) mg/dL AST (5-40) units/L ALT (7-56) units/L Alkaline Phosphatase (35-129) units/L Total Protein (6.3-8.2) g/dL Albumin (3.9-5) g/dL Albumin/Globulin Ratio % Salicylates < 0.3 L (2.8-20.0) mg/dL Acetaminophen < 5.0 L (10.0-30.0) ug/mL Plasma/Serum Alcohol < 0.01 (0-0.07) % 05/04/19 05/04/19 Range/Units 21:32 21:56 WBC (4.5-11.0) K/mm3 RBC (3.65-5.03) M/mm3 Hgb (10.1-14.3) gm/dl Hct (30.3-42.9) % MCV (79-97) fl MCH (28-32) pg MCHC (30-34) % RDW (13.2-15.2) % Plt Count (140-440) K/mm3 Lymph % (Auto) (13.4-35.0) % [place] % (Auto) (0.0-7.3) % Eos % (Auto) (0.0-4.3) % Baso % (Auto) (0.0-1.8) % Lymph # (1.2-5.4) K/mm3 [place] # (0.0-0.8) K/mm3 Eos # (0.0-0.4) K/mm3 Baso # (0.0-0.1) K/mm3 Seg Neutrophils % (40.0-70.0) % Seg Neutrophils # (1.8-7.7) K/mm3 Sodium (137-145) mmol/L Potassium (3.6-5.0) mmol/L Chloride (98-107) mmol/L Carbon Dioxide (22-30) mmol/L Anion Gap mmol/L BUN (7-17) mg/dL Creatinine (0.7-1.2) mg/dL Estimated GFR ml/min BUN/Creatinine Ratio % Glucose (65-100) mg/dL POC Glucose 56 L 131 H (70-105) Calcium (8.4-10.2) mg/dL Magnesium (1.7-2.3) mg/dL Total Bilirubin (0.1-1.2) mg/dL AST (5-40) units/L ALT (7-56) units/L Alkaline Phosphatase (35-129) units/L Total Protein (6.3-8.2) g/dL Albumin (3.9-5) g/dL Albumin/Globulin Ratio % Salicylates (2.8-20.0) mg/dL Acetaminophen (10.0-30.0) ug/mL Plasma/Serum Alcohol (0-0.07) % - EKG Data -: EKG Interpreted by Ak EKG shows normal: sinus rhythm, ST-T waves (no stemi) Rate: tachycardia (100) - Radiology Data Radiology results: report reviewed (ct head: naf) - Medical Decision Making At this point is unclear patient accidentally took extra doses of her medication, intentionally took extra dose of medication, or took her normal increased dose of 15 mg of Ambien prior to arrival. cannot find the additional tablets even know patient states there at home. Patient is drowsy but arousable and able to follow commands. He was not provided any pain medicine due to her current level of sedation. Case was discussed with poison control please refer to consult note. UA and UDS pending at disposition. Aspirin, Tylenol, alcohol negative for ingestion. 2013 has been signed at this time since patient is sedated due to medications and does not have decision- making capacity. Hospitalist informed for admission. - Differential Diagnosis overdose, cva, encephalopathy Critical Care Time: No Critical care attestation.: If time is entered above; I have spent that time in minutes in the direct care of this critically ill patient, excluding procedure time. ED Disposition Clinical Impression: Ambien use disorder, severe, Overdose, Chronic narcotic use, Obstructive sleep apnea, Diabetes mellitus, Hypoglycemia, History of CVA (cerebrovascular accident), Hypokalemia, HTN (hypertension) Disposition: OP ADMIT IP TO THIS HOSP Is pt being admited?: Yes Condition: Stable Time of Disposition: 23:28 (DR Power/hosp)
[2019-05-04] MEDS ORDERED: MAGNESIUM HYDROXIDE (MOM) ORAL LIQD UDC PO PRN (23:41)
[2019-05-04] MEDS ORDERED: DEXTROSE 50% IN WATER (25GM) 50 ML SYRINGE IV PRN (23:41)
[2019-05-04] MEDS ORDERED: ONDANSETRON 4 MG/2 ML INJ IV PRN (23:41)
--- NOTE | 2019-05-04 23:52 | History and Physical Report ---
History of Present Illness Date of examination: 05/04/19 Chief complaint: Altered mental status History of present illness: 53-year-old -[place]i female with known history of and narcotic dependence for chronic pain brought into the emergency room accompanied by her today because of a change in mental status. Patient has been on Ambien for sleep and she also takes oxycodone for pain. It is unclear whether she took an overdose of Ambien tablets. She had a Ambien at [employer] just a few days ago with tachycardia tablets in the bottle and could only find 6 tablets left in the bottle. who has been bed to bedside indicates that patient was appearing confused and stumbling while walking and therefore decided to bring her to the hospital for evaluation. Past History Past Medical History: diabetes, hypertension, hyperlipidemia, stroke, other (Sciatica) Past Surgical History: Social history: no significant social history Family history: cancer (History of liver cancer breast cancer and prostate cancer runs in the family), hypertension Medications and Allergies Allergies Allergy/AdvReac Type Severity Reaction Status Date / Time hydrocodone Allergy Rash Verified 09/18/17 07:12 ketorolac tromethamine Allergy Rash Verified 09/18/17 07:12 [From Toradol] lisinopril Allergy Rash Verified 09/18/17 07:12 morphine Allergy Itching Verified 09/18/17 07:12 pregabalin [From Lyrica] Allergy Rash Verified 09/18/17 07:12 Sulfa (Sulfonamide Allergy Swelling Verified 09/18/17 07:12 Antibiotics) Home Medications Medication Instructions Recorded Confirmed Last Taken Type Insulin Aspart Prot/Aspart(Nf) 30 units SQ TID 07/19/16 09/18/17 09/17/17 History [NovoLOG Mix 70/30 VIAL] ALPRAZolam [Xanax TAB] 0.5 mg PO TID PRN #15 tablet 09/20/17 Unknown Rx AtorvaSTATin [Lipitor] 40 mg PO DAILY #30 tablet 09/20/17 05/05/19 Unknown Rx Clopidogrel Bisulfate [Plavix] 75 mg PO DAILY #30 tablet 09/20/17 05/05/19 Unknown Rx Insulin NPH/Regular [NovoLIN 70/30] 30 unit SUB-Q AC units 09/20/17 Unknown Rx Ipratropium/Albuterol Sulfate 1 spray IH QID #30 mist.inhal 09/20/17 05/05/19 Unknown Rx [Combivent Respimat] Oxycodone HCl/Acetaminophen 1 each PO TID PRN #30 tablet 09/20/17 05/05/19 Unknown Rx [Percocet 10/325 mg] Spironolactone [Aldactone] 100 mg PO QDAY #30 tablet 09/20/17 05/05/19 Unknown Rx Zolpidem [Ambien] 10 mg PO QHS #30 tablet 09/20/17 05/05/19 Unknown Rx amLODIPine 10 mg PO DAILY #30 tablet 09/20/17 05/05/19 Unknown Rx Ondansetron [Zofran Odt] 4 mg PO Q8HR PRN #20 tab.rapdis 04/02/18 05/05/19 Unknown Rx Review of Systems Neurological: lack of coordination, confusion, other (Lower back pain) Exam - Constitutional Vitals: Temp Pulse Resp BP Pulse Ox 98.6 F 97 H 23 148/107 100 05/04/19 20:14 05/04/19 23:00 05/04/19 23:00 05/04/19 23:00 05/04/19 23:00 General appearance: Present: no acute distress, well-nourished - EENT Eyes: Present: PERRL, EOM intact ENT: hearing intact, clear oral mucosa, dentition normal - Neck Neck: Present: supple, normal ROM - Respiratory Respiratory effort: normal Respiratory: bilateral: CTA - Cardiovascular Rhythm: regular Heart Sounds: Present: S1 & S2 - Extremities Extremities: no ischemia, pulses intact, pulses symmetrical, No edema Peripheral Pulses: within normal limits - Abdominal General gastrointestinal: Present: soft, non-tender, non-distended - Integumentary Integumentary: Present: clear, warm, dry - Musculoskeletal Musculoskeletal: strength equal bilaterally - Psychiatric Psychiatric: appropriate mood/affect, intact judgment & insight, cooperative - Neurologic Neurologic: CNII-XII intact, focal deficits Results - Labs CBC & Chem 7: 05/04/19 20:59 05/04/19 20:59 Labs: Abnormal lab results 05/04/19 05/04/19 05/04/19 Range/Units 20:59 20:59 20:59 RBC 5.15 H (3.65-5.03) M/mm3 Hct 43.7 H (30.3-42.9) % Lymph % (Auto) 50.9 H (13.4-35.0) % [place] % (Auto) 8.0 H (0.0-7.3) % Seg Neutrophils % 38.1 L (40.0-70.0) % Potassium 3.3 L (3.6-5.0) mmol/L Glucose 60 L (65-100) mg/dL POC Glucose (70-105) Total Protein 8.4 H (6.3-8.2) g/dL Salicylates < 0.3 L (2.8-20.0) mg/dL Acetaminophen (10.0-30.0) ug/mL 05/04/19 05/04/19 05/04/19 Range/Units 20:59 21:32 21:56 RBC (3.65-5.03) M/mm3 Hct (30.3-42.9) % Lymph % (Auto) (13.4-35.0) % [place] % (Auto) (0.0-7.3) % Seg Neutrophils % (40.0-70.0) % Potassium (3.6-5.0) mmol/L Glucose (65-100) mg/dL POC Glucose 56 L 131 H (70-105) Total Protein (6.3-8.2) g/dL Salicylates (2.8-20.0) mg/dL Acetaminophen < 5.0 L (10.0-30.0) ug/mL Assessment and Plan - Patient Problems (1) Overdose Current Visit: Yes Status: Acute Plan to address problem: This appears to be unintentional of ambien. Patient denies homicidal suicidal ideations. She will be closely observed. Will also monitor mental status. (2) Hypokalemia Current Visit: Yes Status: Acute Plan to address problem: Potassium has been repleted. Will monitor chemistry. (3) Hypoglycemia Current Visit: Yes Status: Acute (4) Chronic narcotic use Current Visit: Yes Status: Acute Plan to address problem: Patient has known history of sciatica and has been on narcotic analgesic medication. (5) HTN (hypertension) Current Visit: Yes Status: Acute Plan to address problem: Blood pressure appears stable we will monitor vital signs closely
[2019-05-04 23:58] LABS: Bilirubin,Urine NEG (Negative); Blood,Urine NEG (Negative); Color,Urine Yellow (Yellow); Mucus,Urine FEW /HPF; Urobilinogen,Urine < 2.0 mg/dL (<2.0)
[2019-05-05 00:04] LABS: Protein,Urine >500 mg/dL (Negative)
[2019-05-05 00:06] LABS: Amphetamine Screen,Urine PRESUMPTIVE NEGATIVE; Benzodiazepines Screen,Urine PRESUMPTIVE NEGATIVE; Cannabinoid Screen,Urine PRESUMPTIVE NEGATIVE; Cocaine Screen,Urine PRESUMPTIVE NEGATIVE; Methadone Screen,Urine PRESUMPTIVE NEGATIVE; Opiate Screen,Urine PRESUMPTIVE NEGATIVE
[2019-05-05] MEDS: ACETAMINOPHEN 325 MG TAB PO PRN ×2 (02:55→17:49)
[2019-05-05] MEDS: hydrALAZINE 20 MG/1 ML INJ IV ONE ×2 (04:11→08:34)
[2019-05-05] MEDS: INSULIN REGULAR, HUMAN 100 UNITS/1 ML SUB-Q SCH ×3 (08:33→17:09)
[2019-05-05] MEDS ORDERED: hydrALAZINE 20 MG/1 ML INJ IV ONE ×3 (09:00→18:00)
[2019-05-05] MEDS ORDERED: amLODIPine 10 MG TAB PO SCH (10:00)
[2019-05-05] MEDS ORDERED: CLOPIDOGREL 75 MG TAB PO SCH (10:00)
--- NOTE | 2019-05-05 10:06 | Progress Note ---
Assessment and Plan Assessment and plan: Acute encephalopathy. Resolved. Etiology likely secondary to Ambien overdose. Diabetes mellitus type 2. Continue Accu-Cheks and sliding scale insulin. Hypertension. Resume antihypertensive medications. Hyperlipidemia. Continue statins. Hypokalemia. Replete potassium. Chronic pain syndrome. History Interval history: No new issues overnight. Hospitalist Physical - Constitutional Vitals: Temp Pulse Resp BP Pulse Ox 97.9 F 88 18 159/121 99 05/05/19 03:24 05/05/19 08:42 05/05/19 04:26 05/05/19 08:42 05/05/19 01:59 EST General appearance: Present: no acute distress, well-nourished - EENT Eyes: Present: PERRL, EOM intact ENT: hearing intact, clear oral mucosa, dentition normal - Neck Neck: Present: supple, normal ROM - Respiratory Respiratory effort: normal Respiratory: bilateral: CTA - Cardiovascular Rhythm: regular Heart Sounds: Present: S1 & S2. Absent: gallop, rub - Extremities Extremities: no ischemia, No edema, Full ROM - Abdominal General gastrointestinal: soft, non-tender, non-distended, normal bowel sounds - Integumentary Integumentary: Present: clear, warm, dry - Neurologic Neurologic: CNII-XII intact, moves all extremities Results - Labs CBC & Chem 7: 05/04/19 20:59 05/04/19 20:59 Labs: Laboratory Last Values WBC 6.8 K/mm3 (4.5-11.0) 05/04/19 20:59 RBC 5.15 M/mm3 (3.65-5.03) H 05/04/19 20:59 Hgb 14.3 gm/dl (10.1-14.3) 05/04/19 20:59 Hct 43.7 % (30.3-42.9) H 05/04/19 20:59 MCV 85 fl (79-97) 05/04/19 20:59 MCH 28 pg (28-32) 05/04/19 20:59 MCHC 33 % (30-34) 05/04/19 20:59 RDW 14.2 % (13.2-15.2) 05/04/19 20:59 Plt Count 311 K/mm3 (140-440) 05/04/19 20:59 Lymph % (Auto) 50.9 % (13.4-35.0) H 05/04/19 20:59 [place] % (Auto) 8.0 % (0.0-7.3) H 05/04/19 20:59 Eos % (Auto) 2.1 % (0.0-4.3) 05/04/19 20:59 Baso % (Auto) 0.9 % (0.0-1.8) 05/04/19 20:59 Lymph # 3.5 K/mm3 (1.2-5.4) 05/04/19 20:59 [place] # 0.5 K/mm3 (0.0-0.8) 05/04/19 20:59 Eos # 0.1 K/mm3 (0.0-0.4) 05/04/19 20:59 Baso # 0.1 K/mm3 (0.0-0.1) 05/04/19 20:59 Seg Neutrophils % 38.1 % (40.0-70.0) L 05/04/19 20:59 Seg Neutrophils # 2.6 K/mm3 (1.8-7.7) 05/04/19 20:59 Sodium 139 mmol/L (137-145) 05/04/19 20:59 Potassium 3.3 mmol/L (3.6-5.0) L 05/04/19 20:59 Chloride 100.2 mmol/L (98-107) 05/04/19 20:59 Carbon Dioxide 25 mmol/L (22-30) 05/04/19 20:59 Anion Gap 17 mmol/L 05/04/19 20:59 BUN 14 mg/dL (7-17) 05/04/19 20:59 Creatinine 0.9 mg/dL (0.7-1.2) 05/04/19 20:59 Estimated GFR > 60 ml/min 05/04/19 20:59 BUN/Creatinine Ratio 16 % 05/04/19 20:59 Glucose 60 mg/dL (65-100) L 05/04/19 20:59 POC Glucose 131 (70-105) H 05/04/19 21:56 Calcium 9.9 mg/dL (8.4-10.2) 05/04/19 20:59 Magnesium 2.00 mg/dL (1.7-2.3) 05/04/19 20:59 Total Bilirubin 0.40 mg/dL (0.1-1.2) 05/04/19 20:59 AST 19 units/L (5-40) 05/04/19 20:59 ALT 14 units/L (7-56) 05/04/19 20:59 Alkaline Phosphatase 100 units/L (35-129) 05/04/19 20:59 Total Protein 8.4 g/dL (6.3-8.2) H 05/04/19 20:59 Albumin 4.7 g/dL (3.9-5) 05/04/19 20:59 Albumin/Globulin Ratio 1.3 % 05/04/19 20:59 Urine Color Yellow (Yellow) 05/04/19 23:39 Urine Turbidity Clear (Clear) 05/04/19 23:39 Urine pH 6.0 (5.0-7.0) 05/04/19 23:39 Ur Specific [place] 1.018 (1.003-1.030) 05/04/19 23:39 Urine Protein >500 mg/dL (Negative) 05/04/19 23:39 Urine Glucose (UA) 50 mg/dL (Negative) 05/04/19 23:39 Urine Ketones Neg mg/dL (Negative) 05/04/19 23:39 Urine Blood Neg (Negative) 05/04/19 23:39 Urine Nitrite Neg (Negative) 05/04/19 23:39 Urine Bilirubin Neg (Negative) 05/04/19 23:39 Urine Urobilinogen < 2.0 mg/dL (<2.0) 05/04/19 23:39 Ur Leukocyte Esterase Neg (Negative) 05/04/19 23:39 Urine WBC (Auto) 1.0 /HPF (0.0-6.0) 05/04/19 23:39 Urine RBC (Auto) 1.0 /HPF (0.0-6.0) 05/04/19 23:39 U Epithel Cells (Auto) 4.0 /HPF (0-13.0) 05/04/19 23:39 Urine Mucus Few /HPF 05/04/19 23:39 Salicylates < 0.3 mg/dL (2.8-20.0) L 05/04/19 20:59 Urine Opiates Screen Presumptive negative 05/04/19 23:39 Urine Methadone Screen Presumptive negative 05/04/19 23:39 Acetaminophen < 5.0 ug/mL (10.0-30.0) L 05/04/19 20:59 Ur Barbiturates Screen Presumptive negative 05/04/19 23:39 Ur Phencyclidine Scrn Presumptive negative 05/04/19 23:39 Ur Amphetamines Screen Presumptive negative 05/04/19 23:39 U Benzodiazepines Scrn Presumptive negative 05/04/19 23:39 Urine Cocaine Screen Presumptive negative 05/04/19 23:39 U Marijuana (THC) Screen Presumptive negative 05/04/19 23:39 Drugs of Abuse Note Disclamer 05/04/19 23:39 Plasma/Serum Alcohol < 0.01 % (0-0.07) 05/04/19 20:59 Active Medications - Current Medications Current Medications: Generic Name Dose Route Start Last Admin Trade Name Freq PRN Reason Stop Dose Admin Acetaminophen 650 mg 05/04/19 23:41 05/05/19 02:55 Tylenol PO 650 mg Q4H PRN Administration Pain MILD(1-3)/Fever >100.5/GLASER Amlodipine Besylate 10 mg 05/05/19 10:00 Amlodipine PO DAILY [facility] Atorvastatin Calcium 40 mg 05/05/19 10:00 Lipitor PO DAILY [facility] Clopidogrel Bisulfate 75 mg 05/05/19 10:00 Plavix PO DAILY [facility] Dextrose 0 ml 05/04/19 23:41 D50w (25gm) Syringe IV Q30MIN PRN Hypoglycemia Insulin Human Regular 0 units 05/05/19 07:30 05/05/19 08:33 Humulin R SUB-Q 1 units ACHS [facility] Administration Protocol Magnesium Hydroxide 30 ml 05/04/19 23:41 Milk Of Magnesia PO Q4H PRN Constipation Ondansetron HCl 4 mg 05/04/19 23:41 Zofran IV Q8H PRN Nausea And Vomiting Sodium Chloride 10 ml 05/05/19 10:00 Sodium Chloride Flush Syringe 10 Ml IV BID NAHEED Sodium Chloride 10 ml 05/04/19 23:41 Sodium Chloride Flush Syringe 10 Ml IV PRN PRN LINE FLUSH
--- NOTE | 2019-05-05 16:55 | Discharge Summary ---
Providers - Providers Date of Admission: 05/04/19 23:41 Date of discharge: 05/05/19 Attending physician: MIRA ZURITA [facility] Reason for admission: AMS Condition: Stable Hospital course: 53 year old female who presented to the ED 05/04/19 by EMS status post suspected intentional overdose. Spouse reported that the Pt had been confused after taking Ambien and he was only able to locate 5 pills of a new prescription just filled the day prior. Per report the Pt was lethargic and confused upon arrival. She was placed on a 2013 in the ED given suspicion of overdose and lack of decision making capacity given apparent intoxication. The Pt denies any history of prior psychiatric diagnosis or treatment. She denies abuse of drugs or alcohol and denies that she took any more of her medication that what is prescribed. Psych was consulted and Pt reported that she took Xanax prior to arrival, prescribed 1mg TID. Her UDS was (-) for benzodiazepines. Psych also reported that the pt was calm and cooperative; depressed, anxious, and tearful with congruent affect; thought was linear and goal directed; insight and judgment were fair. She denied suicidal or homicidal ideation, auditory or visual hallucinations and there was no indication of psychosis. 2013 signed given altered mental status upon arrival and suspicion of intentional overdose. However, The Pt now alert and oriented x4 and denies suicide attempt as well as substance abuse and is seeking discharge against medical advice. She is being referred to psychiatry for proper disposition and will be referred for stabilization upon reevaluation if indicated. Psychiatry lifted the 2013 and nurse rep[orted pt is stable for d/c per Psych Disposition: - TO HOME OR SELFCARE Time spent for discharge: 35 - Discharge Diagnoses (1) Ambien use disorder, severe Status: Acute (2) Chronic narcotic use Status: Acute (3) HTN (hypertension) Status: Acute (4) Obstructive sleep apnea Status: Acute Core Measure Documentation - Palliative Care Palliative Care/ Comfort Measures: Not Applicable - Core Measures Any of the following diagnoses?: none Exam - Constitutional Vitals: Temp Pulse Resp BP Pulse Ox 98.8 F 107 H 20 151/106 97 05/05/19 11:22 05/05/19 11:22 05/05/19 11:22 05/05/19 11:22 05/05/19 11:22 General appearance: Present: no acute distress, well-nourished - EENT Eyes: Present: PERRL ENT: hearing intact, clear oral mucosa - Neck Neck: Present: supple, normal ROM - Respiratory Respiratory effort: normal Respiratory: bilateral: CTA - Cardiovascular Heart Sounds: Present: S1 & S2. Absent: rub, click - Extremities Extremities: pulses symmetrical, No edema Peripheral Pulses: within normal limits - Abdominal General gastrointestinal: Present: soft, non-tender, non-distended, normal bowel sounds Female genitourinary: Present: normal - Integumentary Integumentary: Present: clear, warm, dry - Musculoskeletal Musculoskeletal: gait normal, strength equal bilaterally - Psychiatric Psychiatric: appropriate mood/affect, intact judgment & insight - Neurologic Neurologic: CNII-XII intact, moves all extremities Plan Activity: no restrictions Weight Bearing Status: Weight Bear as Tolerated Diet: regular
[2019-05-05 17:21] VITALS: BP 156/116
--- NOTE | 2019-05-05 18:59 | Consultation ---
History of Present Illness - Reason for Consult Consult date: 05/05/19 Reason for consult: psychiatrich consult Requesting physician: MIRA ZURITA - Chief Complaint Chief complaint: Altered mental status - History of Present Psychiatric Illness Patient is a 53 y/o female that presents after being seen in the ER. Patient had taken her night time sleeping med and her asked had she taken her meds for bed and she didn't want to respond to him appropriately. She had taken her meds and she was very sleepy and was not wanting to be bothered. He was concerned and didn't know where her meds were, so he called 911. After being in ER, she was angry and told him she was fine and where her meds were and he left her in ER to go find them without letting anyone know...while gone she was admitted. He returned with her meds..All in full count. She pleasant on assessment, apologetic. She is A&Ox 4 mood is good, affect is appropriate and thought process linear and concrete. Denies any auditory or visual hallucinations. She denies any SI or HI. She denies any recreational drug or substance use. Medications and Allergies Allergies Allergy/AdvReac Type Severity Reaction Status Date / Time hydrocodone Allergy Rash Verified 09/18/17 07:12 ketorolac tromethamine Allergy Rash Verified 09/18/17 07:12 [From Toradol] lisinopril Allergy Rash Verified 09/18/17 07:12 morphine Allergy Itching Verified 09/18/17 07:12 pregabalin [From Lyrica] Allergy Rash Verified 09/18/17 07:12 Sulfa (Sulfonamide Allergy Swelling Verified 09/18/17 07:12 Antibiotics) Home Medications Medication Instructions Recorded Confirmed Last Taken Type Insulin Aspart Prot/Aspart(Nf) 30 units SQ TID 07/19/16 09/18/17 09/17/17 History [NovoLOG Mix 70/30 VIAL] ALPRAZolam [Xanax TAB] 0.5 mg PO TID PRN #15 tablet 09/20/17 Unknown Rx AtorvaSTATin [Lipitor] 40 mg PO DAILY #30 tablet 09/20/17 05/05/19 Unknown Rx Clopidogrel Bisulfate [Plavix] 75 mg PO DAILY #30 tablet 09/20/17 05/05/19 Unknown Rx Insulin NPH/Regular [NovoLIN 70/30] 30 unit SUB-Q AC units 09/20/17 Unknown Rx Ipratropium/Albuterol Sulfate 1 spray IH QID #30 mist.inhal 09/20/17 05/05/19 Unknown Rx [Combivent Respimat] Oxycodone HCl/Acetaminophen 1 each PO TID PRN #30 tablet 09/20/17 05/05/19 Unkno wn Rx [Percocet 10/325 mg] Spironolactone [Aldactone] 100 mg PO QDAY #30 tablet 09/20/17 05/05/19 Unknown Rx Zolpidem [Ambien] 10 mg PO QHS #30 tablet 09/20/17 05/05/19 Unknown Rx amLODIPine 10 mg PO DAILY #30 tablet 09/20/17 05/05/19 Unknown Rx Ondansetron [Zofran ODT TAB] 4 mg PO Q8HR PRN #20 tab.rapdis 04/02/18 05/05/19 Unknown Rx Active Meds: Active Medications Acetaminophen (Tylenol) 650 mg PO Q4H PRN PRN Reason: Pain MILD(1-3)/Fever >100.5/GLASER Last Admin: 05/05/19 17:49 Dose: 650 mg Documented by: Amlodipine Besylate (Amlodipine) 10 mg PO DAILY [facility] Last Admin: 05/05/19 11:19 Dose: 10 mg Documented by: Atorvastatin Calcium (Lipitor) 40 mg PO DAILY [facility] Last Admin: 05/05/19 11:21 Dose: 40 mg Documented by: Clopidogrel Bisulfate (Plavix) 75 mg PO DAILY [facility] Last Admin: 05/05/19 11:20 Dose: 75 mg Documented by: Dextrose (D50w (25gm) Syringe) 0 ml IV Q30MIN PRN PRN Reason: Hypoglycemia Insulin Human Regular (Humulin R) 0 units SUB-Q ACHS [facility]; Protocol Last Admin: 05/05/19 17:09 Dose: 1 units Documented by: Magnesium Hydroxide (Milk Of Magnesia) 30 ml PO Q4H PRN PRN Reason: Constipation Ondansetron HCl (Zofran) 4 mg IV Q8H PRN PRN Reason: Nausea And Vomiting Sodium Chloride (Sodium Chloride Flush Syringe 10 Ml) 10 ml IV BID [facility] Last Admin: 05/05/19 11:21 Dose: 10 ml Documented by: Sodium Chloride (Sodium Chloride Flush Syringe 10 Ml) 10 ml IV PRN PRN PRN Reason: LINE FLUSH Mental Status Exam - Vital signs Last Vital Signs Temp 98.8 F 05/05/19 11:22 Pulse 96 H 05/05/19 17:19 Resp 20 05/05/19 11:22 BP 156/116 05/05/19 17:19 Pulse Ox 97 05/05/19 11:22 - Exam Orientation: time, place, person Affect: normal Mood: appropriate, calm, relaxed Thought Process: Intact Perceptions: none Speech: normal rate and pattern Motor activity: normal Level of consciousness: alert Interaction: cooperative, pleasant Results Result Diagrams: 05/04/19 20:59 05/04/19 20:59 Abnormal lab results 05/04/19 05/04/19 05/04/19 Range/Units 20:59 20:59 20:59 RBC 5.15 H (3.65-5.03) M/mm3 Hct 43.7 H (30.3-42.9) % Lymph % (Auto) 50.9 H (13.4-35.0) % [place] % (Auto) 8.0 H (0.0-7.3) % Seg Neutrophils % 38.1 L (40.0-70.0) % Potassium 3.3 L (3.6-5.0) mmol/L Glucose 60 L (65-100) mg/dL POC Glucose (70-105) Total Protein 8.4 H (6.3-8.2) g/dL Salicylates < 0.3 L (2.8-20.0) mg/dL Acetaminophen (10.0-30.0) ug/mL 05/04/19 05/04/19 05/04/19 Range/Units 20:59 21:32 21:56 RBC (3.65-5.03) M/mm3 Hct (30.3-42.9) % Lymph % (Auto) (13.4-35.0) % [place] % (Auto) (0.0-7.3) % Seg Neutrophils % (40.0-70.0) % Potassium (3.6-5.0) mmol/L Glucose (65-100) mg/dL POC Glucose 56 L 131 H (70-105) Total Protein (6.3-8.2) g/dL Salicylates (2.8-20.0) mg/dL Acetaminophen < 5.0 L (10.0-30.0) ug/mL All other labs normal. Assessment and Plan Assessment and plan: Impression Insomnia Stable...Patient stable and appropriate. We discussed insomnia and safe appropriate usage of sleep aids. We discussed with she and her effects of sleep meds and benzo's on individuals a safe alternatives. We feel the patient is stable and safe to return home with her family at this time. We do not feel she is a risk or threat to herself or others. Dr. Mahin MD was notified, properlyb of our decision. Staffed with Dr. Kevin MD
== END 2019-05-05 19:31 | disposition home or self-care (01) ==
LOC: ED 19:59 → 3A 23:41
PROVIDERS: ADMIT Internal Medicine Geriatric Medicine; ATTEND Hospitalist
DX: T42.6X1A Poisoning by other antiepileptic and sedative-hypnotic drugs, accidental (unintentional), initial encounter (principal); R41.82 Altered mental status, unspecified; E78.5 Hyperlipidemia, unspecified; I10 Essential (primary) hypertension; E87.6 Hypokalemia; G47.33 Obstructive sleep apnea (adult) (pediatric); E11.649 Type 2 diabetes mellitus with hypoglycemia without coma; Z86.73 Personal history of transient ischemic attack (TIA), and cerebral infarction without residual deficits; Y92.89 Other specified places as the place of occurrence of the external cause
CPT/HCPCS: 36415; 70450; 80053; 80307; 81001; 82962; 83735; 85025; 93005; 93010; 96372; 96374; 96376; 99284; A9270; G0378; J0360; 80320; G0480; J1815

== ENCOUNTER 2020-08-25 23:39 | Emergency (ER) | payer MEDICAID ==
[2020-08-25] MEDS ORDERED: SODIUM CHLORIDE 0.9% 1000 ML 1,000 ML IV ONE (23:53)
--- NOTE | 2020-08-26 00:04 | Event Note ---
ED Screening Note Date of service: 08/26/20 Time: 00:03 ED Screening Note: Patient is a 55-year-old female with history of diabetes type 2 insulin- dependent who presents for hypoglycemia states glucose was 484 at home , Same measured high on glucometer for paramedics, patient denies polys, there is no fever no chills no shortness of breath no chest pain. This initial assessment/diagnostic orders/clinical plan/treatment(s) is/are subject to change based on patients health status, clinical progression and re- assessment by fellow clinical providers in the ED. Further treatment and workup at subsequent clinical providers discretion. Patient/guardian urged not to elope from the ED as their condition may be serious if not clinically assessed and managed. Initial orders include:
[2020-08-26 00:55] LABS: Basophils % (Auto) 0.9 % (0.0-1.8); Eosinophils # (Auto) 0.1 K/mm3 (0.0-0.4); Eosinophils % (Auto) 2.8 % (0.0-4.3); Hematocrit 44.4 % (30.3-42.9); Hemoglobin 14.5 gm/dl (10.1-14.3); Lymphocytes # (Auto) 2.1 K/mm3 (1.2-5.4); Lymphocytes % (Auto) 40.4 % (13.4-35.0); Mean Corpuscular HGB Conc 33 % (30-34); Mean Corpuscular Volume 86 fl (79-97); Monocytes # (Auto) 0.5 K/mm3 (0.0-0.8); Monocytes % (Auto) 8.7 % (0.0-7.3); Platelet Count 382 K/mm3 (140-440); Red Blood Count 5.19 M/mm3 (3.65-5.03); Red Cell Distribution Width 14.1 % (13.2-15.2)
[2020-08-26] MEDS ORDERED: INSULIN REGULAR, HUMAN 100 UNITS/1 ML IV ONE (01:05)
[2020-08-26] MEDS ORDERED: ONDANSETRON 4 MG/2 ML INJ IV ONE (01:10)
--- NOTE | 2020-08-26 01:12 | Emergency Department Report ---
ED General Adult HPI - General Chief complaint: Hyperglycemia Stated complaint: HIGH BLOOD SUGAR Time Seen by Provider: 08/26/20 00:59 Source: patient, EMS Mode of arrival: Wheelchair Limitations: No Limitations - History of Present Illness Initial comments: Patient is 55 years old female with history of hypertension diabetes. Patient presented to the ER complaining of high blood sugar of up to 480 at home, EMS number is 350. Patient also stated that she has been having high blood pressure and able to control also. Patient is complaining of dry mouth and increased urination. Patient also mentioned that she had a colonoscopy last week. Patient is complaining of generalized abdominal pain. Patient denied any nausea or vomiting. No fever or chills. Patient also denied any chest pain or shortness of breath. Patient is also complaining of headache. Family reported that patient had altered mental status however patient is completely alert and oriented x3 in the emergency room. - Related Data Home Medications Medication Instructions Recorded Confirmed Last Taken Atorvastatin Calcium [Lipitor] 80 mg PO QHS 01/21/20 01/21/20 Unknown Eszopiclone 2 mg PO QHS 01/21/20 01/21/20 Unknown Insulin Glargine [Lantus VIAL] 40 units SUB-Q QHS 01/21/20 01/21/20 Unknown Lispro Insulin [HumaLOG] 12 unit SQ ACHS 01/21/20 01/21/20 Unknown Oxycodone HCl [oxyCODONE] 10 mg PO Q6H PRN 01/21/20 01/21/20 Unknown Sertraline [Zoloft] 100 mg PO QDAY 01/21/20 01/21/20 Unknown amLODIPine 10 mg PO DAILY 01/21/20 01/21/20 Unknown Previous Rx's Medication Instructions Recorded Last Taken Type Famotidine [Pepcid] 20 mg PO BID #60 tablet 01/24/20 Unknown Rx Montelukast [Singulair] 10 mg PO QPM #30 tablet 01/24/20 Unknown Rx Prednisone [predniSONE 10 mg 10 mg PO .TAPER #1 tab.ds.pk 01/24/20 Unknown Rx (6-Day Pack, 21 Tabs)] Allergies Allergy/AdvReac Type Severity Reaction Status Date / Time hydrocodone Allergy Rash Verified 09/18/17 07:12 ketorolac tromethamine Allergy Rash Verified 09/18/17 07:12 [From Toradol] lisinopril Allergy Rash Verified 09/18/17 07:12 morphine Allergy Itching Verified 09/18/17 07:12 pregabalin [From Lyrica] Allergy Rash Verified 09/18/17 07:12 Sulfa (Sulfonamide Allergy Swelling Verified 09/18/17 07:12 Antibiotics) ED Review of Systems ROS: Stated complaint: HIGH BLOOD SUGAR Other details as noted in HPI Comment: All other systems reviewed and negative Constitutional: denies: chills, fever Respiratory: denies: cough, shortness of breath, SOB with exertion Cardiovascular: denies: chest pain, palpitations Endocrine: increased thirst, increased urine Gastrointestinal: abdominal pain. denies: nausea, vomiting Musculoskeletal: denies: back pain Neurological: headache. denies: weakness, numbness, paresthesias ED Past Medical Hx - Past Medical History Previous Medical History?: Yes Hx Hypertension: Yes Hx CVA: Yes (TIA) Hx Congestive Heart Failure: No Hx Diabetes: Yes Hx Sickle Cell Disease: No Hx Seizures: Yes Hx Asthma: No Hx COPD: No Hx HIV: No Additional medical history: chronic leg pain diverticulitis uses CPAP at night CAD. sleep apnea - Surgical History Past Surgical History?: Yes Additional Surgical History: x1 - Social History Smoking Status: Never Smoker Substance Use Type: None - Medications Home Medications: Home Medications Medication Instructions Recorded Confirmed Last Taken Type Atorvastatin Calcium [Lipitor] 80 mg PO QHS 01/21/20 01/21/20 Unknown History Eszopiclone 2 mg PO QHS 01/21/20 01/21/20 Unknown History Insulin Glargine [Lantus VIAL] 40 units SUB-Q QHS 01/21/20 01/21/20 Unknown History Lispro Insulin [HumaLOG] 12 unit SQ ACHS 01/21/20 01/21/20 Unknown History Oxycodone HCl [oxyCODONE] 10 mg PO Q6H PRN 01/21/20 01/21/20 Unknown History Sertraline [Zoloft] 100 mg PO QDAY 01/21/20 01/21/20 Unknown History amLODIPine 10 mg PO DAILY 01/21/20 01/21/20 Unknown History Famotidine [Pepcid] 20 mg PO BID #60 tablet 01/24/20 Unknown Rx Montelukast [Singulair] 10 mg PO QPM #30 tablet 01/24/20 Unknown Rx Prednisone [predniSONE 10 mg 10 mg PO .TAPER #1 tab.ds.pk 01/24/20 Unknown Rx (6-Day Pack, 21 Tabs)] ED Physical Exam - General Limitations: No Limitations General appearance: alert, in no apparent distress - Head Head exam: Present: atraumatic, normocephalic, normal inspection - Eye Eye exam: Present: normal appearance, PERRL - ENT ENT exam: Present: normal exam, normal orophraynx, mucous membranes moist - Neck Neck exam: Present: normal inspection, full ROM. Absent: tenderness, meningism us - Respiratory Respiratory exam: Present: normal lung sounds bilaterally - Cardiovascular Cardiovascular Exam: Present: regular rate, normal rhythm, normal heart sounds - GI/Abdominal GI/Abdominal exam: Present: soft, normal bowel sounds. Absent: distended, tenderness, guarding, rebound, rigid, mass, bruit, pulsatile mass, hernia - Extremities Exam Extremities exam: Present: normal inspection, full ROM, normal capillary refill. Absent: tenderness - Back Exam Back exam: Present: normal inspection, full ROM. Absent: CVA tenderness (R), CVA tenderness (L) - Neurological Exam Neurological exam: Present: alert, oriented X3, CN II-XII intact - Psychiatric Psychiatric exam: Present: normal mood - Skin Skin exam: Present: warm, intact, normal color ED Course Vital Signs 08/25/20 08/26/20 08/26/20 23:58 01:32 01:46 Temperature 98.0 F Pulse Rate 85 75 Respiratory 17 18 19 Rate Blood Pressure 150/100 159/99 O2 Sat by Pulse 97 98 Oximetry 08/26/20 08/26/20 02:22 02:30 Temperature Pulse Rate 96 H 66 Respiratory 19 17 Rate Blood Pressure O2 Sat by Pulse 98 98 Oximetry ED Medical Decision Making - Lab Data Result diagrams: 08/26/20 00:05 08/26/20 00:05 - EKG Data -: EKG Interpreted by Me EKG shows normal: sinus rhythm Rate: normal - Radiology Data Radiology results: report reviewed - Medical Decision Making Patient is 55 years old female with history of hypertension diabetes. Patient presented to the ER complaining of high blood sugar of up to 480 at home, EMS number is 350. Patient also stated that she has been having high blood pressure and able to control also. Patient is complaining of dry mouth and increased urination. Patient also mentioned that she had a colonoscopy last week. Patient is complaining of generalized abdominal pain. Patient denied any nausea or vomiting. No fever or chills. Patient also denied any chest pain or shortness of breath. Patient is also complaining of headache. Family reported that patient had altered mental status however patient is completely alert and oriented x3 in the emergency room. Patient received normal saline, insulin, fentanyl and Tylenol. Patient stated that she is feeling much better. Blood glucose improved to 156. CT brain and CT abdomen pelvis is negative for acute finding. Patient advised to follow-up with her primary care physician in the next 2 to 3 days and to return to the ER if she develop any new symptoms. Critical care attestation.: If time is entered above; I have spent that time in minutes in the direct care of this critically ill patient, excluding procedure time. ED Disposition Clinical Impression: Acute abdominal pain, Acute hyperglycemia, Altered mental status Disposition: DC-01 TO HOME OR SELFCARE Is pt being admited?: No Condition: Stable Instructions: Hyperglycemia, [id number] Referrals: PRIMARY CARE, [Primary Care Provider] - 3-5 Days
[2020-08-26 01:18] LABS: Alanine Aminotransferase 17 units/L (7-56); Albumin 4.3 g/dL (3.9-5); BUN/Creatinine Ratio 19; Blood Urea Nitrogen 17 mg/dL (7-17); Calcium 9.8 mg/dL (8.4-10.2); Hemolysis Index 11
[2020-08-26] MEDS ORDERED: fentaNYL 100 MCG/2 ML INJ IV ONE (01:30)
--- NOTE | 2020-08-26 02:25 | Cat Scan Report ---
CT HEAD WITHOUT CONTRAST INDICATION / CLINICAL INFORMATION: Altered Mental Status. TECHNIQUE: All CT scans at this location are performed using CT dose reduction for ALARA by means of automated exposure control. COMPARISON: None available. FINDINGS: BRAIN PARENCHYMA: No acute intracranial hemorrhage. No evidence of recent infarct. No mass effect or midline shift. VENTRICULAR SYSTEM/EXTRA-AXIAL SPACES: Ventricles are normal for age. No extra-axial fluid collection . ORBITS: Normal as visualized. SKELETAL SYSTEM/SOFT TISSUES: Normal bones and soft tissues. PARANASAL SINUSES/MASTOID AIR CELLS: No significant abnormality. ADDITIONAL FINDINGS: None. IMPRESSION: 1. No acute intracranial abnormality. Signer Name: Joey Adam MD Signed: 08/26/2020 2:20 AM Workstation Name: [id number]
--- NOTE | 2020-08-26 02:28 | Cat Scan Report ---
CT ABDOMEN AND PELVIS WITH CONTRAST INDICATION / CLINICAL INFORMATION: "Generalized" abdominal pain, status-post Colonoscopy last week.. TECHNIQUE: Axial CT images were obtained through the abdomen and pelvis after IV contrast. All CT sc ans at this location are performed using CT dose reduction for ALARA by means of automated exposure c ontrol. COMPARISON: 04/02/2018 FINDINGS: LOWER CHEST: No significant abnormality LIVER: No significant abnormality GALLBLADDER/BILIARY TREE: No significant abnormality PANCREAS: No significant abnormality SPLEEN: No significant abnormality ADRENALS: No significant abnormality KIDNEYS / URETER: No significant abnormality URINARY BLADDER: No significant abnormality REPRODUCTIVE ORGANS: Enlarged, fibroid uterus. No suspicious adnexal mass identified. STOMACH / SMALL BOWEL: Stomach and small bowel are normal in caliber. No evidence of bowel inflammati on. COLON: Colonic diverticulosis without evidence of diverticulitis. The appendix is normal in caliber. LYMPH NODES: No significant adenopathy. VASCULATURE: No significant abnormality. OTHER: No free air, free fluid, or focal fluid collection is identified. SKELETAL SYSTEM: No acute osseous findings. IMPRESSION: No acute abnormality of the abdomen or pelvis. Signer Name: Joey Adam MD Signed: 08/26/2020 2:23 AM Workstation Name: [id number]
--- NOTE | 2020-08-26 02:28 | XRay Report ---
XR chest 1V ap INDICATION / CLINICAL INFORMATION: weakness. COMPARISON: 01/23/2020 FINDINGS: SUPPORT DEVICES: None. HEART /PULMONARY VASCULATURE: No significant abnormality. LUNGS / PLEURA: No significant pulmonary or pleural abnormality. No pneumothorax. ADDITIONAL FINDINGS: No significant additional findings. IMPRESSION: 1. No acute findings. Signer Name: Joey Adam MD Signed: 08/26/2020 2:24 AM Workstation Name: [id number]
[2020-08-26] MEDS ORDERED: ACETAMINOPHEN 500 MG TAB PO ONE (02:38)
[2020-08-26 04:36] VITALS: BP 107/72
== END 2020-08-26 04:40 | disposition home or self-care (01) ==
LOC: ED 23:39
DX: R73.9 Hyperglycemia, unspecified (principal); R41.82 Altered mental status, unspecified; Z86.73 Personal history of transient ischemic attack (TIA), and cerebral infarction without residual deficits; Z79.899 Other long term (current) drug therapy; Z88.6 Allergy status to analgesic agent; Z88.4 Allergy status to anesthetic agent; Z88.8 Allergy status to other drugs, medicaments and biological substances
CPT/HCPCS: 36415; 70450; 71045; 74177; 80053; 82962; 83690; 84484; 85025; 93005; 96361; 96374; 96375; 99285; J2405; J3010; J7030; Q9967; J1815